=== PATIENT | female | born 1985 | race African-American/Black ===

== ENCOUNTER 2019-05-29 19:31 | Emergency (ER) | payer OTHER ==
--- NOTE | 2019-05-29 19:49 | PDOC ---
Rapid Medical Evaluation Chief Complaint: Pain Time Seen by Provider: 05/29/19 19:46 Medical Evaluation: Allergies Allergy/AdvReac Type Severity Reaction Status Date / Time No Known Allergies Allergy Verified 09/11/17 11:50 Vital Signs Temp Pulse Resp BP Pulse Ox 98 F 78 18 137/82 100 05/29/19 19:45 05/29/19 19:45 05/29/19 19:45 05/29/19 19:45 05/29/19 19:45 05/29/19 19:47 I have performed a brief in-person evaluation of this patient. The patient presents with a chief complaint of: h/o appendectomy present with RT flank pain since today with nausea. Denies vomiting or urinary complains. Denies fever, chills, diarrhea or constipation. LMP 05/13 Pertinent physical exam findings: A&O in NAD I have ordered the following: cbc,cmp,lipase, UA, UHCG, UCx The patient will proceed to the ED for further evaluation. Discharge Disposition - Diagnosis Right flank pain - Discharge Dispostion Condition at time of disposition: Stable - Referrals - Patient Instructions - Post Discharge Activity
[2019-05-29 20:07] LABS: HYALINE CASTS 28 /lpf (0-8); URINE APPEARANCE CLOUDY; URINE BILIRUBIN NEGATIVE (NEGATIVE); URINE COLOR YELLOW; URINE GLUCOSE (UA) NEGATIVE (NEGATIVE); URINE KETONE NEGATIVE (NEGATIVE); URINE LEUK ESTERASE 2+ (NEGATIVE); URINE NITRITE NEGATIVE (NEGATIVE); URINE PROTEIN 1+ (NEGATIVE); URINE RBC 33 /hpf (0-4); URINE UROBILINOGEN 0.2 mg/dL (0.2-1.0); URINE WBC 50 /hpf (0-5)
[2019-05-29 20:43] LABS: BASO % 0.5 % (0-2.0); EOS % 0.9 % (0-4.5); HEMATOCRIT 37.7 % (32.4-45.2); HEMOGLOBIN 12.1 GM/dL (10.7-15.3); LYMPH % 25.3 % (8-40); MCH 27.7 pg (25.7-33.7); MCHC 32.2 g/dl (32.0-36.0); MEAN CELL VOLUME 86.1 fl (80-96); MEAN PLT VOLUME 8.7 fl (7.5-11.1); MONO % 7.5 % (3.8-10.2); NEUT % 65.8 % (42.8-82.8); PLATELET COUNT 289 K/MM3 (134-434); RBC 4.38 M/mm3 (3.60-5.2); RDW 13.7 % (11.6-15.6); WHITE BLOOD COUNT 11.9 K/mm3 (4.0-10.0)
[2019-05-29] MEDS ORDERED: KETOROLAC TROMETHAMINE 30 MG/1 ML VIAL IVPUSH ONE (20:53)
[2019-05-29] MEDS ORDERED: SODIUM CHLORIDE 1,000 ML IV STA (20:53)
--- NOTE | 2019-05-29 20:53 | PDOC ---
History of Present Illness - General Chief Complaint: Pain Stated Complaint: PAIN Time Seen by Provider: 05/29/19 19:46 History Source: Patient Exam Limitations: No Limitations - History of Present Illness Initial Comments: 33 year old female with no PMH, x2, appendectomy presented to ED for RUQ pain since today. Pt reported her pain is constant, dull, non-radiating, no alleviating or aggravating factors. Pt admitted to nausea. Pt denied any association of pain with food. Pt denied diarrhea, constipation, dysuria, hematuria, fever. Past History - Past Medical History Allergies/Adverse Reactions: Allergies Allergy/AdvReac Type Severity Reaction Status Date / Time No Known Allergies Allergy Verified 05/29/19 21:57 Home Medications: Ambulatory Orders NK [No Known Home Medication] 09/11/17 COPD: No DVT: No Dementia: No - Surgical History Abdominal Surgery: Yes Appendectomy: Yes - Immunization History Immunization Up to Date: Yes - Psycho Social/Smoking Cessation Hx Smoking History: Never smoked Have you smoked in the past 12 months: No Hx Alcohol Use: No Drug/Substance Use Hx: No Substance Use Type: None *Physical Exam - Vital Signs Last Vital Signs Temp Pulse Resp BP Pulse Ox 98 F 78 18 137/82 100 05/29/19 19:45 05/29/19 19:45 05/29/19 19:45 05/29/19 19:45 05/29/19 19:45 - Physical Exam Comments: ROS General: denied fever, chills, generalized weakness. HEENT: denied sore throat, rhinorrhea, ear pain. Cardiovascular: denied chest pain, palpitations, syncope, diaphoresis. Respiratory: denied shortness of breath, cough, sputum production, hemoptysis. Gastrointestinal: admitted to abdominal pain, nausea. denied vomiting, diarrhea , constipation, blood in stool. Genitourinary: denied dysuria, increased urinary frequency, hematuria, urinary incontinence, flank pain. Back: denied back pain. Musculoskeletal: denied joint pain, muscle pain, joint swelling. Neurological: denied headache, dizziness, numbness, tingling, weakness. Integumentary: denied rash, laceration, abrasion. Hematologic/Lymphatic: denied bruising or bleeding. PE Constitutional: Well-nourished, Well-developed, appearing stated age. HEENT: head is normocephalic, atraumatic. EOMI. PERRLA. no posterior pharyngeal erythema.no tonsillar swelling or exudates bilaterally. uvula midline. no peritonsillar swelling, tenderness or abscess. no jaw tenderness or misalignment. Neck: supple. Full ROM. Cardiovascular: regular heart rhythm. no murmurs. no pericardial friction rub. Respiratory: clear to auscultation bilaterally. no crackles, rhonchi or wheezing. no stridor. Gastrointestinal: soft, flat. mild tenderness to palpation at lower border of RUQ/mid right abdomen. murphys negative. normal bowel sounds. no rebound, guarding, masses. CVA tenderness negative bilaterally. Extremities: peripheral pulses intact. no lower extremity edema. Neurological: CN 2-12 grossly intact. moves all four extremities. Psych: awake, alert, oriented x3. follows commands. answers questions appropriately. ED Treatment Course - LABORATORY CBC & Chemistry Diagram: 05/29/19 20:26 05/29/19 20:26 - ADDITIONAL ORDERS Additional order review: Laboratory Results 05/29/19 05/29/19 19:53 19:53 Urine Color Yellow Urine Appearance Cloudy Urine pH 6.0 Ur Specific Elmer 1.021 Urine Protein 1+ H Urine Glucose (UA) Negative Urine Ketones Negative Urine Blood 2+ H Urine Nitrite Negative Urine Bilirubin Negative Urine Urobilinogen 0.2 Ur Leukocyte Esterase 2+ H Urine WBC (Auto) 50 Urine RBC (Auto) 33 Urine Casts (Auto) 28 U Epithel Cells (Auto) 7.0 Urine Bacteria (Auto) 1406.0 Urine HCG, Qual Negative 05/29/19 20:26 RBC 4.38 MCV 86.1 MCHC 32.2 RDW 13.7 MPV 8.7 Neutrophils % 65.8 Lymphocytes % 25.3 Monocytes % 7.5 Eosinophils % 0.9 Basophils % 0.5 - RADIOLOGY Radiology Studies Ordered: Category Date Time Status ABDOMEN US -LIMITED [US] Stat Ultrasound 05/29/19 20:45 Ordered Medical Decision Making - Medical Decision Making 33 year old female with above PMH / PSH presented to ED for RUQ pain with nausea since today. Initial Vital Signs Temp Pulse Resp BP Pulse Ox 98 F 78 18 137/82 100 05/29/19 19:45 05/29/19 19:45 05/29/19 19:45 05/29/19 19:45 05/29/19 19:45 Afebrile. No tachycardia. No tachypnea. No hypotension. No hypoxia on room air. Urine testing negative. Labs ordered: CBC, CMP, Lipase, UA/UC Imaging ordered: RUQ US Medications ordered: normal saline bolus 1000 cc once, toradol 30 mg IV once 05/29/19 20:54 CBC WBC 11.9 K/mm3 (4.0-10.0) H 05/29/19 20:26 RBC 4.38 M/mm3 (3.60-5.2) 05/29/19 20:26 Hgb 12.1 GM/dL (10.7-15.3) 05/29/19 20:26 Hct 37.7 % (32.4-45.2) 05/29/19 20: MCV 86.1 fl (80-96) 05/29/19 20: MCH 27.7 pg (25.7-33.7) 05/29/19 20: MCHC 32.2 g/dl (32.0-36.0) 05/29/19 20:26 RDW 13.7 % (11.6-15.6) 05/29/19 20:26 Plt Count 289 K/MM3 (134-434) 05/29/19 20:26 MPV 8.7 fl (7.5-11.1) 05/29/19 20:26 Absolute Neuts (auto) 7.8 K/mm3 (1.5-8.0) 05/29/19 20:26 Neutrophils % 65.8 % (42.8-82.8) 05/29/19 20: Lymphocytes % 25.3 % (8-40) 05/29/19 20:26 Monocytes % 7.5 % (3.8-10.2) 05/29/19 20:26 Eosinophils % 0.9 % (0-4.5) 05/29/19 20:26 Basophils % 0.5 % (0-2.0) 05/29/19 20: Nucleated RBC % 0 % (0-0) 05/29/19 20:26 Leukocytosis without left shift. No anemia. Urine Test Results Urine Color Yellow 05/29/19 19:53 Urine Appearance Cloudy 05/29/19 19:53 Urine pH 6.0 (5.0-8.0) 05/29/19 19:53 Ur Specific Elmer 1.021 (1.010-1.035) 05/29/19 19:53 Urine Protein 1+ (NEGATIVE) H 05/29/19 19:53 Urine Glucose (UA) Negative (NEGATIVE) 05/29/19 19:53 Urine Ketones Negative (NEGATIVE) 05/29/19 19:53 Urine Blood 2+ (NEGATIVE) H 05/29/19 19:53 Urine Nitrite Negative (NEGATIVE) 05/29/19 19:53 Urine Bilirubin Negative (NEGATIVE) 05/29/19 19:53 Ur Leukocyte Esterase 2+ (NEGATIVE) H 05/29/19 19:53 WBC 50 Hemorrhagic cystitis vs pyelonephritis vs neprolithiasis. Imaging ordered: CT abdomen/pelvis spiral study noncontrast 05/29/19 21:24 CMP Sodium 137 mmol/L (136-145) 05/29/19 20:26 Potassium 3.9 mmol/L (3.5-5.1) 05/29/19 20:26 Chloride 105 mmol/L (98-107) 05/29/19 20:26 Carbon Dioxide 25 mmol/L (21-32) 05/29/19 20:26 Anion Gap 7 MMOL/L (8-16) L 05/29/19 20:26 BUN 8.7 mg/dL (7-18) 05/29/19 20:26 Creatinine 0.8 mg/dL (0.55-1.3) 05/29/19 20:26 Est GFR (CKD-EPI)AfAm 110.70 05/29/19 20:26 Est GFR (CKD-EPI)NonAf 95.52 05/29/19 20:26 Random Glucose 98 mg/dL (74-106) 05/29/19 20:26 Calcium 8.7 mg/dL (8.5-10.1) 05/29/19 20:26 Total Bilirubin 0.3 mg/dL (0.2-1) 05/29/19 20:26 AST 14 U/L (15-37) L 05/29/19 20:26 ALT 16 U/L (13-61) 05/29/19 20:26 Alkaline Phosphatase 59 U/L (45-117) 05/29/19 20:26 Total Protein 7.5 g/dl (6.4-8.2) 05/29/19 20:26 Albumin 4.0 g/dl (3.4-5.0) 05/29/19 20:26 Lipase 85 U/L (73-393) 05/29/19 20:26 No electrolyte abnormalities. No KIARRA. No transaminitis. Lipase wnl 05/29/19 21:33 US report: [facility] Phys: Jessica Sim RESIDENT : 1985 Age: 33 Sex: F [facility] Acct: [id number] Loc: [facility] [address] [place] [address] Exam Date: 05/29/19 Status: [place] [address] Unit Number: [id number] EXAM#: TYPE/EXAM: RESULT: [id number] US/ABDOMEN US -LIMITED Right upper quadrant abdomen ultrasound Clinical information: right upper quadrant pain, nausea No biliary calculus is seen. The gallbladder demonstrates no discrete abnormality. No pericholecystic fluid is noted. The common bile duct diameter appears unremarkable measuring 0.3 cm. The liver, right kidney and partially visualized pancreas demonstrate no sonographic pathology. No free intraperitoneal fluid is seen. Impression: Negative exam. No definite sonographic abnormality is identified. Reported By: Jason Chapin MD 05/29/19212605/29/19 23:18 Ct report: [facility] Phys: Kevin Sima RESIDENT : 1985 Age: 33 Sex: F [facility] Acct: [id number] Loc: [facility] [address] [place] [address] Exam Date: 05/29/19 Status: [place] [address] Unit Number: [id number] EXAM#: TYPE/EXAM: RESULT: [id number] CT/SPIRAL- RENAL-STONE CT Renal stone CT without contrast Clinical information: right upper quadrant pain, nausea; hematuria on UA Multiplanar imaging was performed. No intravenous or enteric contrast was administered. No definite urinary tract calculus or hydroureteronephrosis is noted. There is no gross urinary tract mass lesion on noncontrast imaging. No evidence of pneumoperitoneum, free intraperitoneal fluid or bowel obstruction. The liver, spleen, pancreas, gallbladder, adrenal glands and kidneys demonstrate no obvious noncontrast pathology. The aorta appears unremarkable in caliber. No gross lymphadenopathy is seen. Surgical clips are noted posterior to the cecum and ascending colon. The appendix is not definitely visualized possibly on a postsurgical basis. No indirect CT signs of acute appendicitis are seen. There is no CT evidence of acute diverticulitis or obvious acute colitis. No gross noncontrast small bowel or gastric abnormality is visualized. A 2 x 1.1 cm cystic focus is noted along the ventral border of the uterine fundus in a right paramedian position possibly representing an ovarian cyst. The visualized osseous structures demonstrate no gross acute pathology. Very small umbilical hernia containing fat only. Colonic fecal retention which is probably moderate. Impression: No CT evidence of urolithiasis or obstructive uropathy. Reported By: Jason Chapin MD 05/29/19 2317 05/29/19 23:31 Results explained to pt, pt given copy of report/labs. Pt instructed to take Bactrim OP and F/U with PCP promptly. Pt reported understanding and agreed with plan for care. Pt discharged. Medications ordered: Bactrim DS 1 tablet once Discharge - Discharge Information Problems reviewed: Yes Clinical Impression/Diagnosis: RUQ pain, UTI (urinary tract infection) Condition: Stable Disposition: HOME - Admission No - Follow up/Referral Referrals: Jaky Munguia [Primary Care Provider] - - Patient Discharge Instructions Patient Printed Discharge Instructions: DI for Urinary Tract Infection (UTI) Additional Instructions: Follow up with your primary care doctor within 3 days and bring all paperwork given to you today to your appointment. Your care is not complete until you follow up. Return to the Emergency Department for increasing pain despite Ibuprofen use, fever, vomiting, chest pain, shortness of breath or any other new, worsening or concerning symptoms. Take all prescriptions as indicated on labels. - Post Discharge Activity
[2019-05-29] MEDS ORDERED: KETOROLAC TROMETHAMINE 30 MG/1 ML VIAL ONE (21:05)
--- NOTE | 2019-05-29 21:07 | PDOC ---
Attending Attestation - Resident Resident Name: Jessica Sim - ED Attending Attestation I have performed the following: I have examined & evaluated the patient, The case was reviewed & discussed with the resident, I agree w/resident's findings & plan, Exceptions are as noted - HPI HPI: 05/29/19 21:04 3-year-old female presents with 1 day of right upper quadrant persistent dull pain. Associated with nausea but there is no fever chills vomiting or diarrhea Past surgical history significant for x2 and appendectomy - Physicial Exam PE: 05/29/19 21:05 wnwd 33 yo female p/w contrast dull RUQ pain head ncat neck supple lungs cta b/l cvs [id number] abd RUQ,RLQ tenderness extremities no edema skin warm and dry no appreciable tenderness in hr flank neuro axox3,ambulatory 05/29/19 21:19 05/29/19 21:21 - Medical Decision Making 05/29/19 21:22 Diff diagnosis: kidney stones,cholecystitis,hepatitis 05/29/19 22:39 Patient had a limited abdominal ultrasound that showed no significant gallbladder abnormalities, no inflammation, no sludge, no gallstones UA shows a urinary tract infection 50,000 WBCs, 2+ leuks CBC shows 11,900 WBCs Chemistries are unremarkable Negative test 05/29/19 23:[address] did not show any obstructing stones or hydronephrosis UA was positive for UTI and pt started on bactrim and discharged 05/30/19 01:43
[2019-05-29 21:17] LABS: BILIRUBIN,TOTAL 0.3 mg/dL (0.2-1); BLOOD UREA NITROGEN 8.7 mg/dL (7-18); CALCIUM 8.7 mg/dL (8.5-10.1); CREATININE 0.8 mg/dL (0.55-1.3); POTASSIUM 3.9 mmol/L (3.5-5.1); TOT PROT 7.5 g/dl (6.4-8.2)
[2019-05-29] MEDS ORDERED: SULFAMETHOXAZOLE/TRIMETHOPRIM 800MG/160MG D.S. TABLET PO ONE (23:31)
[2019-05-29] MEDS ORDERED: SULFAMETHOXAZOLE/TRIMETHOPRIM 800MG/160MG D.S. TABLET ONE (23:35)
[2019-05-29 23:52] VITALS: BP 97/63; PULSE 68; TEMP 98.3
== END 2019-05-29 23:51 | disposition home or self-care (01) ==
LOC: JER 19:31
PROC: 3E0333Z Introduction of Anti-inflammatory into Peripheral Vein, Percutaneous Approach (ICD-10-PCS; principal; 2019-05-29)
DX: N39.0 Urinary tract infection, site not specified (principal); D72.829 Elevated white blood cell count, unspecified
CPT/HCPCS: 36415; 74176-TC; 76705-TC; 80053; 81003; 83690; 84703; 85025; 87086; 87186; 96374; 99284-25; J7030

== ENCOUNTER 2019-06-21 20:18 | Emergency (ER) | payer OTHER ==
[2019-06-21 20:24] VITALS: BP 117/68; TEMP 98.7
--- NOTE | 2019-06-21 20:48 | PDOC ---
History of Present Illness - General Chief Complaint: Cold Symptoms Stated Complaint: HEADACHE/COUGHING/NAUSEA Time Seen by Provider: 06/21/19 20:31 - History of Present Illness Initial Comments: 06/21/19 20:48 CHIEF COMPLAINT: multiple complaints HISTORY OF PRESENT ILLNESS: 33 yo F with no significant PMH (s/p appendectomy) presents to ED with headache, body aches, right lower abdominal pain since this afternoon. Patient reports chills but is unsure if she had had a fever. Patient also reports coughing for the past 3 days but denies sore throat, runny nose. Patient believes the source of her RLQ pain is a urinary tract infection as she has had similar symptoms before. Patient took Nyquil earlier today with minimal relief., LMP 05/18. No recent travel or sick contacts. PAST MEDICAL HISTORY: Denies past medical history FAMILY HISTORY: Denies SOCIAL HISTORY: Denies tobacco, alcohol, illicit drug use. SURGICAL HISTORY: appendectomy ALLERGIES: No known drug allergies REVIEW OF SYSTEMS General/Constitutional: Chills, body aches. Denies weakness, weight change. HEENT: Denies change in vision. Denies ear pain or discharge. Denies sore throat. Cardiovascular: Denies chest pain or shortness of breath. Respiratory: Denies cough, wheezing, or hemoptysis. Gastrointestinal: R lower abdominal pain. Denies nausea, vomiting, diarrhea or constipation. Denies rectal bleeding. Genitourinary: Denies dysuria, frequency, or change in urination. Musculoskeletal: Denies joint or muscle swelling or pain. Denies neck or back pain. Skin and breasts: Denies rash or easy bruising. Neurologic: Denies headache, vertigo, loss of consciousness, or loss of sensation. Psychiatric: Denies depression or anxiety. PHYSICAL EXAM General Appearance: Well-appearing, appropriately dressed. No apparent distress , no intoxication. HEENT: EOMI, PERRLA, normal ENT inspection, normal voice, TMs normal, pharynx normal. No conjunctival pallor. No photophobia, scleral icterus. Neck: Supple. Trachea midline. No tenderness, rigidity, carotid bruit, stridor , lymphadenopathy, or thyromegaly. Respiratory/Chest: Lungs CTAB. No shortness of breath, chest tenderness, respiratory distress, accessory muscle use. No crackles, rales, rhonchi, stridor , wheezing, dullness Cardiovascular: RRR. S1, S2. No JVD, murmur, bradycardia, tachycardia. Vascular Pulses: Dorsalis-Pedis (R): 2+, Dorsalis-Pedis (L): 2+ Gastrointestinal/Abdominal: Normal bowel sounds. Abdomen soft, non-distended. No tenderness or rebound tenderness. No organomegaly, pulsatile mass, guarding , hernia, hepatomegaly, splenomegaly. Lymphatic: No adenopathy, tenderness. Musculoskeletal/Extremities: Normal inspection. FROM of all extremities, normal capillary refill. Pelvis Stable. No CVA tenderness. No tenderness to extremities, pedal edema, swelling, erythema or deformity. Integumentary: Appropriate color, dry, warm. 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 Fully oriented, alert. Appropriate mood/affect. Motor strength 5/5. No appreciable EOM palsy, facial droop or sensory deficit. Past History - Past Medical History Allergies/Adverse Reactions: Allergies Allergy/AdvReac Type Severity Reaction Status Date / Time No Known Allergies Allergy Verified 05/29/19 21:57 Home Medications: Ambulatory Orders Sulfamethoxazole/Trimethoprim [Bactrim Ds -] 1 tab PO BID #19 tablet 05/29/19 Nitrofurantoin Monohyd/M-Cryst [Macrobid -] 100 mg PO BID #14 capsule 06/21/19 COPD: No DVT: No Dementia: No - Surgical History Abdominal Surgery: Yes Appendectomy: Yes - Immunization History Immunization Up to Date: Yes - Psycho Social/Smoking Cessation Hx Smoking History: Never smoked Have you smoked in the past 12 months: No Hx Alcohol Use: No Drug/Substance Use Hx: No Substance Use Type: None *Physical Exam - Vital Signs Last Vital Signs Temp Pulse Resp BP Pulse Ox 98.7 F 125 H 20 117/68 97 06/21/19 20:20 06/21/19 20:20 06/21/19 20:20 06/21/19 20:20 06/21/19 20:20 Medical Decision Making - Medical Decision Making 06/21/19 21:02 33 yo F with no significant PMH presents to ED with headache, body aches, right lower abdominal pain since this afternoon. -urine -flu swab 06/21/19 22:27 UA positive for UTI, previous ucx shows sensitivity to macrobid. Rx sent. Advised patient to take medication as prescribed and follow up with PCP in one week. Advised patient of signs and symptoms for return to ED. Patient verbalized understanding and agrees to plan. Discharge - Discharge Information Problems reviewed: Yes Clinical Impression/Diagnosis: UTI (urinary tract infection) Qualifiers: Urinary tract infection type: site unspecified Hematuria presence: without hematuria Qualified Code(s): N39.0 - Urinary tract infection, site not specified Condition: Stable Disposition: HOME - Admission No - Additional Discharge Information Prescriptions: Nitrofurantoin Monohyd/M-Cryst [Macrobid -] 100 mg PO BID #14 capsule - Follow up/Referral - Patient Discharge Instructions Patient Printed Discharge Instructions: DI for Urinary Tract Infection (UTI) Additional Instructions: Please take medications as prescribed. Follow up with your primary care doctor in one week for further monitoring of your symptoms. If you develop fever uncontrolled by Motrin or Tylenol, persistent vomiting or diarrhea, worsening abdominal pain, or any new or worsening symptoms, please return to the ER. - Post Discharge Activity Work/Back to School Note: Back to Work
--- NOTE | 2019-06-21 20:54 | PDOC ---
*Physical Exam - Vital Signs Last Vital Signs Temp Pulse Resp BP Pulse Ox 98.7 F 125 H 20 117/68 97 06/21/19 20:20 06/21/19 20:20 06/21/19 20:20 06/21/19 20:20 06/21/19 20:20 - Physical Exam Comments: 06/21/19 20:53 The patient was examined by [RODGER Cordova] under my direct supervision. I personally evaluated the patient. I concur with the above findings and the plan of care.
[2019-06-21 21:28] LABS: EPI CELLS 5.6 /HPF (0-5/HPF); HYALINE CASTS 53 /lpf (0-8); PH,URINE 5.5 (5.0-8.0); URINE APPEARANCE CLOUDY; URINE BACTERIA 113.2 /hpf (NEGATIVE); URINE BILIRUBIN NEGATIVE (NEGATIVE); URINE COLOR YELLOW; URINE GLUCOSE (UA) NEGATIVE (NEGATIVE); URINE KETONE TRACE (NEGATIVE); URINE LEUK ESTERASE 2+ (NEGATIVE); URINE NITRITE NEGATIVE (NEGATIVE); URINE PROTEIN NEGATIVE (NEGATIVE); URINE RBC 1 /hpf (0-4); URINE UROBILINOGEN 0.2 mg/dL (0.2-1.0); URINE WBC 57 /hpf (0-5)
[2019-06-21] MEDS ORDERED: ACETAMINOPHEN 500 MG TABLET (FP) PO ONE (22:17)
[2019-06-21] MEDS ORDERED: ACETAMINOPHEN 325 MG TABLET (FP) ONE (22:22)
[2019-06-21] MEDS ORDERED: NITROFURANTOIN MACROCRYSTAL 50 MG CAPSULE (FP) ONE (22:23)
[2019-06-21] MEDS ORDERED: NITROFURANTOIN MACROCRYSTAL 50 MG CAPSULE (FP) PO SCH (22:30)
[2019-06-21 22:33] VITALS: PULSE 104
== END 2019-06-21 22:34 | disposition home or self-care (01) ==
LOC: JER 20:18
DX: N39.0 Urinary tract infection, site not specified (principal)
CPT/HCPCS: 81003; 84703; 87804; 99282-25

== ENCOUNTER 2019-09-05 21:41 | Inpatient (IN) | payer OTHER ==
--- NOTE | 2019-09-05 21:48 | PDOC ---
Rapid Medical Evaluation Chief Complaint: Urinary Problem Time Seen by Provider: 09/05/19 21:44 Medical Evaluation: Allergies Allergy/AdvReac Type Severity Reaction Status Date / Time No Known Allergies Allergy Verified 05/29/19 21:57 09/05/19 21:45 I have performed a brief in-person evaluation of this patient. The patient presents with a chief complaint of: dysuria, urinary frequency x 1 week. seen at [facility] last night and being treated with cipro and pyridium . report having body itching after starting to take meds yesterday so she stopped taking meds. Denies rash, SOB. pt did not take anything for itching Pertinent physical exam findings: A&O in NAD I have ordered the following: UA, Uhcg, Ucx The patient will proceed to the ED for further evaluation. Discharge Disposition - Diagnosis UTI (urinary tract infection) - Discharge Dispostion Condition at time of disposition: Stable - Referrals - Patient Instructions - Post Discharge Activity
--- NOTE | 2019-09-05 22:49 | PDOC ---
Attending Attestation - Resident Resident Name: [email or web address] - ED Attending Attestation I have performed the following: I have examined & evaluated the patient, The case was reviewed & discussed with the resident, I agree w/resident's findings & plan - HPI HPI: 09/06/19 01:27 see resident hpi - Physicial Exam PE: 09/06/19 01:28 see resident exam - Medical Decision Making 09/06/19 01:28 33-year-old female currently on Cipro for diagnosed UTI complaining of right flank pain nausea and body aches Labs suggest urinary tract infection A right upper quadrant ultrasound was ordered due to elevated liver function tests/lipase which showed no acute abnormality We will admit to medical service for antibiotics and further evaluation
[2019-09-05] MEDS ORDERED: ACETAMINOPHEN 1000 MG/100 ML VIAL (NON FORMULARY) IVPB ONE (22:52)
[2019-09-05] MEDS ORDERED: ONDANSETRON 4 MG/2 ML VIAL IVPUSH ONE (22:52)
[2019-09-05] MEDS ORDERED: SODIUM CHLORIDE 1,000 ML IV STA (22:52)
[2019-09-05] MEDS ORDERED: ACETAMINOPHEN INJECTION 100 ML IVPB ONE (23:26)
[2019-09-05] MEDS ORDERED: ONDANSETRON 4 MG/2 ML VIAL ONE (23:26)
[2019-09-05 23:37] LABS: WHITE BLOOD COUNT 15.7 K/mm3 (4.0-10.0)
[2019-09-05 23:38] LABS: BASO % 0.5 % (0-2.0); EOS % 1.4 % (0-4.5); HEMATOCRIT 40.2 % (32.4-45.2); HEMOGLOBIN 12.8 GM/dL (10.7-15.3); LYMPH % 8.5 % (8-40); MCH 27.1 pg (25.7-33.7); MCHC 31.9 g/dl (32.0-36.0); MEAN PLT VOLUME 9.2 fl (7.5-11.1); MONO % 6.5 % (3.8-10.2); NEUT % 83.1 % (42.8-82.8); PLATELET COUNT 271 K/MM3 (134-434); RBC 4.74 M/mm3 (3.60-5.2); RDW 14.4 % (11.6-15.6)
[2019-09-05 23:58] LABS: EPI CELLS 9.7 /HPF (0-5/HPF); HYALINE CASTS 24 /lpf (0-8); PH,URINE 6.5 (5.0-8.0); URINE APPEARANCE CLOUDY; URINE BACTERIA 252.1 /hpf (NEGATIVE); URINE BILIRUBIN 3+ (NEGATIVE); URINE COLOR DK YELLOW; URINE GLUCOSE (UA) NEGATIVE (NEGATIVE); URINE KETONE 3+ (NEGATIVE); URINE LEUK ESTERASE 2+ (NEGATIVE); URINE NITRITE POSITIVE (NEGATIVE); URINE PROTEIN TRACE (NEGATIVE); URINE WBC 34 /hpf (0-5)
[2019-09-06 00:12] LABS: ALBUMIN 3.8 g/dl (3.4-5.0); BILIRUBIN,TOTAL 3.5 mg/dL (0.2-1); CREATININE 0.8 mg/dL (0.55-1.3); POTASSIUM 3.7 mmol/L (3.5-5.1); TOT PROT 7.7 g/dl (6.4-8.2)
--- NOTE | 2019-09-06 00:26 | PDOC ---
History of Present Illness - General Chief Complaint: Urinary Problem Stated Complaint: PAIN Time Seen by Provider: 09/05/19 21:44 History Source: Patient Exam Limitations: No Limitations - History of Present Illness Initial Comments: 09/05/19 23:53 Patient is a 33F with no significant PMH here today complaining of RUQ pain. Patient was seen at [facility] two days ago for complaining of dysuria and urinary incontinence. She was diagnosed with a uti and discharged with ciprofloxacin. Patient reports the pain started today, prompting her to come to our ED for further evaluation. Denies vaginal pain, vaginal discharge. LMP last week. Denies fevers, chills. Endorses nausea and vomiting. Denies chest pain and shortness of breath. Past History - Past Medical History Allergies/Adverse Reactions: Allergies Allergy/AdvReac Type Severity Reaction Status Date / Time No Known Allergies Allergy Verified 09/05/19 21:48 Home Medications: Ambulatory Orders Sulfamethoxazole/Trimethoprim [Bactrim Ds -] 1 tab PO BID #19 tablet 05/29/19 Nitrofurantoin Monohyd/M-Cryst [Macrobid -] 100 mg PO BID #14 capsule 06/21/19 COPD: No DVT: No Dementia: No - Surgical History Abdominal Surgery: Yes Appendectomy: Yes - Immunization History Immunization Up to Date: Yes - Psycho Social/Smoking Cessation Hx Smoking History: Never smoked Have you smoked in the past 12 months: No Hx Alcohol Use: No Drug/Substance Use Hx: No Substance Use Type: None Review of Systems - Review of Systems Able to Perform ROS?: Yes Comments:: 09/06/19 00:26 GENERAL/CONSTITUTIONAL: No fever or chills. No weakness. HEAD, EYES, EARS, NOSE AND THROAT: No change in vision. No sore throat. CARDIOVASCULAR: No chest pain or shortness of breath RESPIRATORY: No cough, wheezing, or hemoptysis. GASTROINTESTINAL: +nausea,+vomiting, no diarrhea or constipation. GENITOURINARY:+ dysuria, +frequency, no change in urination. MUSCULOSKELETAL: No joint or muscle swelling or pain. No neck or back pain. SKIN: No rash NEUROLOGIC: No headache, vertigo, loss of consciousness, or change in strength/ sensation. ENDOCRINE: No increased thirst. No abnormal weight change HEMATOLOGIC/LYMPHATIC: No anemia, easy bleeding, or history of blood clots. ALLERGIC/IMMUNOLOGIC: No hives or skin allergy. *Physical Exam - Vital Signs Last Vital Signs Temp Pulse Resp BP Pulse Ox 97.9 F 99 H 18 134/68 98 09/05/19 21:44 09/05/19 21:44 09/05/19 21:44 09/05/19 21:44 09/05/19 21:44 - Physical Exam 09/06/19 00:28 GENERAL: Awake, alert, and fully oriented, in no acute distress HEAD: No signs of trauma, normocephalic, atraumatic EYES: PERRLA, EOMI, sclera anicteric, conjunctiva clear ENT: Auricles normal inspection, hearing grossly normal, nares patent, oropharynx clear without exudates. Moist mucosa NECK: Normal ROM, supple, no lymphadenopathy, JVD, or masses LUNGS: No distress, speaks full sentences, clear to auscultation bilaterally HEART: Regular rate and rhythm, normal S1 and S2, no murmurs, rubs or gallops, peripheral pulses normal and equal bilaterally. ABDOMEN: Soft, +RUQ tenderness, no suprapubic tenderness, no cva tenderness. EXTREMITIES: Normal inspection, Normal range of motion, no edema. No clubbing or cyanosis. NEUROLOGICAL: Cranial nerves II through XII grossly intact. Normal speech, normal gait, no focal sensorimotor deficits SKIN: Warm, Dry, normal turgor, no rashes or lesions noted. ED Treatment Course - LABORATORY CBC & Chemistry Diagram: 09/05/19 23:20 09/05/19 23:20 - ADDITIONAL ORDERS Additional order review: 09/05/19 23:20 RBC 4.74 MCV 85.0 MCHC 31.9 L RDW 14.4 MPV 9.2 Neutrophils % 83.1 H D Lymphocytes % 8.5 D Monocytes % 6.5 Eosinophils % 1.4 Basophils % 0.5 - RADIOLOGY Radiology Studies Ordered: Category Date Time Status ABDOMEN US -LIMITED [US] Stat Ultrasound 09/05/19 22:53 Ordered - Medications Given in the ED: ED Medications Discontinued Medications Generic Name Dose Route Start Last Admin Trade Name Freq PRN Reason Stop Dose Admin Acetaminophen 1,000 mg 09/05/19 22:52 09/05/19 23:46 Ofirmev Injection - IVPB 09/05/19 22:53 1,000 mg ONCE ONE Administration Sodium Chloride 1,000 mls @ 1,000 mls/hr 09/05/19 22:52 09/05/19 23:45 Normal Saline - IV 09/05/19 23:51 1,000 mls/hr ASDIR STA Administration Ondansetron HCl 4 mg 09/05/19 22:52 09/05/19 23:46 Zofran Injection IVPUSH 09/05/19 22:53 4 mg ONCE ONE Administration Medical Decision Making - Medical Decision Making 09/06/19 00:28 Patient is 33F here today with dysuria, RUQ pain. Vitals normal and stable. DDx includes, but is not limited to: cholecystitis, pyelonephritis, pancreatitis. Will evaluate further with cbc, cmp, lipase, ua/uc, upreg, ultrasound. Will treat with tylenol, zofran and fluids. 09/06/19 00:44 Laboratory Tests 09/05/19 09/05/19 09/05/19 23:20 23:20 23:20 WBC 15.7 H Hgb 12.8 Plt Count 271 Total Bilirubin 3.5 H AST 180 H ALT 501 H Lipase 603 H Urine Ketones Urine Nitrite Urine Bilirubin Ur Leukocyte Esterase Urine WBC (Auto) 09/05/19 23:40 WBC Hgb Plt Count Total Bilirubin AST ALT Lipase Urine Ketones 3+ H Urine Nitrite Positive H Urine Bilirubin 3+ H Ur Leukocyte Esterase 2+ H Urine WBC (Auto) 34 CBC elevated. Bili 3.5, AST/ALT elevated. Lipase 603. UA+ for UTI and ketones, suggesting decreased PO intake. Pending formal read of US. Wet read shows normal appearing gallbladder with normal CBD. Given abnormal liver values, failed outpatient treatment, and vomiting, will admit patient for pyelonephritis. Given ceftriaxone, urine culture sent. 09/06/19 01:05 US confirms wet read. No acute abnormalities. 09/06/19 01:30 D/w Dr Andrew. Accepted to Dr Foley. Discharge - Discharge Information Problems reviewed: Yes Clinical Impression/Diagnosis: UTI (urinary tract infection), Pyelonephritis Condition: Stable - Admission Yes - Follow up/Referral Referrals: Jaky Munguia [Primary Care Provider] - - Patient Discharge Instructions - Post Discharge Activity
[2019-09-06] MEDS ORDERED: CEFTRIAXONE 1,000 MG in DEXTROSE 5%-WATER - 50 ML IVPB ONE (00:49)
[2019-09-06] MEDS ORDERED: CEFTRIAXONE 1 GM/50 ML BAG ONE (01:11)
--- NOTE | 2019-09-06 02:15 | HP ---
CHIEF COMPLAINT: Right sided flank pain with dysuria since 1 day PCP: Jaky Smith HISTORY OF PRESENT ILLNESS: This is a 33 year old female with no significant PMH. She presented to the ER with complaints of right sided flank pain with dysuria since yesterday. The pain was sudden in onset, 10/10 in intensity, sharp in quality, constant in nature, non-radiating, alleviated by IV tylenol (received in the ER). She endorses associated anorexia, nausea, and vomiting. She denies any fevers, chills, SOB, chest pain, abdominal pain, diarrhea, hematuria, polyuria, or dysuria. She had 3-4 episodes of NBNB vomiting the day of presentation, yellow/ green in color. She went to the ER at [facility] the same day, and was discharged on Ciprofloxacin and Pyridium. She was started on both medications there without any adverse reactions. However, later that day she developed diffuse itching soon after taking both medications. This prompted her to visit the [facility] ER. She visited the [facility] ER in May and then again in June, both times with complaints of UTIs, and was discharged on Bactrim in May and on Macrobid BID for 7 days in June. Her LMP ended on the of this month, and she has not noticed any increased flow, clots, or dysmenorrhea. She is currently sexually active with 1 male partner, does not use any contraceptives, and was last tested for STDs last year (results were negative). ER course was notable for: (1) WBC 15.7 (Neutrophils 83.1%), UA: ketones 3+, bili 3+, blood 1+, nitrite +, LE 2+ (2) TBili 3.5, AST 180, ALT 501, ALP 169, Lipase 603 (3) US Abdomen: Enlarged liver (18.5cm), no intrahepatic biliary dilation, masses, stones, or sludge. GB wall normal in thickness. Splee, pancreas are normal. Kidneys normal in size without hydronephrosis, nephrolithiasis, or masses Recent Travel: denies PAST MEDICAL HISTORY: As listed in HPI PAST SURGICAL HISTORY: Appendectomy Social History: Smoking: denies Alcohol: socially Drugs: denies Allergies No Known Allergies Allergy (Verified 09/05/19 21:48) HOME MEDICATIONS: None REVIEW OF SYSTEMS CONSTITUTIONAL: Generalized Itching Absent: fever, chills, diaphoresis, generalized weakness, malaise, loss of appetite, weight change HEENT: Absent: rhinorrhea, nasal congestion, throat pain, throat swelling, difficulty swallowing, mouth swelling, ear pain, eye pain, visual changes CARDIOVASCULAR: Absent: chest pain, syncope, palpitations, irregular heart rate, lightheadedness , peripheral edema RESPIRATORY: Absent: cough, shortness of breath, dyspnea with exertion, orthopnea, wheezing, stridor, hemoptysis GASTROINTESTINAL: Absent: abdominal pain, abdominal distension, nausea, vomiting, diarrhea, constipation, melena, hematochezia GENITOURINARY: dysuria, flank pain Absent: dysuria, frequency, urgency, hesitancy, hematuria, flank pain, genital pain MUSCULOSKELETAL: Absent: myalgia, arthralgia, joint swelling, back pain, neck pain SKIN: Generalized Itching Absent: rash, itching, pallor HEMATOLOGIC/IMMUNOLOGIC: Absent: easy bleeding, easy bruising, lymphadenopathy, frequent infections ENDOCRINE: Absent: unexplained weight gain, unexplained weight loss, heat intolerance, cold intolerance NEUROLOGIC: Absent: headache, focal weakness or paresthesias, dizziness, unsteady gait, seizure, mental status changes, bladder or bowel incontinence PSYCHIATRIC: Absent: anxiety, depression, suicidal or homicidal ideation, hallucinations. PHYSICAL EXAMINATION Vital Signs - 24 hr 09/05/19 21:44 Temperature 97.9 F Pulse Rate 99 H Respiratory 18 Rate Blood Pressure 134/68 O2 Sat by Pulse 98 Oximetry (%) GENERAL: Awake, alert, and fully oriented, in no acute distress. HEAD: Normal with no signs of trauma. EYES: Pupils equal, round and reactive to light, extraocular movements intact, sclera anicteric, conjunctiva clear. No lid lag. EARS, NOSE, THROAT: Ears normal, nares patent, oropharynx clear without exudates. Moist mucous membranes. NECK: Normal range of motion, supple without lymphadenopathy, JVD, or masses. LUNGS: Breath sounds equal, clear to auscultation bilaterally. No wheezes, and no crackles. No accessory muscle use. HEART: Regular rate and rhythm, normal S1 and S2 without murmur, rub or gallop. ABDOMEN: Soft, nontender, not distended, normoactive bowel sounds, no guarding, no rebound, no masses. No hepatomegaly or splenomegaly. MUSCULOSKELETAL: Normal range of motion at all joints. No bony deformities or tenderness. Mild right sided CVA tenderness. UPPER EXTREMITIES: 2+ pulses, warm, well-perfused. No cyanosis. No clubbing. No peripheral edema. LOWER EXTREMITIES: 2+ pulses, warm, well-perfused. No calf tenderness. No peripheral edema. NEUROLOGICAL: Cranial nerves II-XII intact. Normal speech PSYCHIATRIC: Cooperative. Good eye contact. Appropriate mood and affect. SKIN: Warm, dry, normal turgor, no rashes or lesions noted, normal capillary refill. Laboratory Results - last 24 hr 09/05/19 09/05/19 09/05/19 23:20 23:20 23:20 WBC 15.7 H RBC 4.74 Hgb 12.8 Hct 40.2 MCV 85.0 MCH 27.1 MCHC 31.9 L RDW 14.4 Plt Count 271 MPV 9.2 Absolute Neuts (auto) 13.1 H Neutrophils % 83.1 H D Lymphocytes % 8.5 D Monocytes % 6.5 Eosinophils % 1.4 Basophils % 0.5 Nucleated RBC % 0 Sodium 137 Potassium 3.7 Chloride 103 Carbon Dioxide 25 Anion Gap 9 BUN 10.0 Creatinine 0.8 Est GFR (CKD-EPI)AfAm 110.70 Est GFR (CKD-EPI)NonAf 95.52 Random Glucose 89 Calcium 9.0 Total Bilirubin 3.5 H AST 180 H ALT 501 H Alkaline Phosphatase 169 H Total Protein 7.7 Albumin 3.8 Lipase 603 H Urine Color Urine Appearance Urine pH Ur Specific [place] Urine Protein Urine Glucose (UA) Urine Ketones Urine Blood Urine Nitrite Urine Bilirubin Urine Urobilinogen Ur Leukocyte Esterase Urine WBC (Auto) Urine RBC (Auto) Urine Casts (Auto) U Epithel Cells (Auto) Urine Bacteria (Auto) Urine HCG, Qual 09/05/19 09/05/19 23:40 23:40 WBC RBC Hgb Hct MCV MCH MCHC RDW Plt Count MPV Absolute Neuts (auto) Neutrophils % Lymphocytes % Monocytes % Eosinophils % Basophils % Nucleated RBC % Sodium Potassium Chloride Carbon Dioxide Anion Gap BUN Creatinine Est GFR (CKD-EPI)AfAm Est GFR (CKD-EPI)NonAf Random Glucose Calcium Total Bilirubin AST ALT Alkaline Phosphatase Total Protein Albumin Lipase Urine Color Dk yellow Urine Appearance Cloudy Urine pH 6.5 Ur Specific [place] 1.022 Urine Protein Trace Urine Glucose (UA) Negative Urine Ketones 3+ H Urine Blood 1+ H Urine Nitrite Positive H Urine Bilirubin 3+ H Urine Urobilinogen 1.0 Ur Leukocyte Esterase 2+ H Urine WBC (Auto) 34 Urine RBC (Auto) 5-8 Urine Casts (Auto) 24 U Epithel Cells (Auto) 9.7 Urine Bacteria (Auto) 252.1 Urine HCG, Qual Negative ASSESSMENT/PLAN: 33F with no significant PMH presented to the ER with R flank pain, dysuria, nausea, and vomiting since yesterday. She went to [facility] ER the same day, and was discharged on Ciprofloxacin and Pyridium, after which she briefly developed diffuse itching. #Pyelonephritis - WBC 15.7 (Neutrophils 83.1%) with symptoms of dysuria as well as LE 3+ on UA and CVS tenderness on examination suggestive of pyelonephritis - UA ketones 3+, bili 3+, blood 1+, nitrite +, LE 2+ - Urine etst was negative - UCx sent - US Abdomen: Enlarged liver (18.5cm), no intrahepatic biliary dilation, masses , stones, or sludge. GB wall normal in thickness. Splee, pancreas are normal. Kidneys normal in size without hydronephrosis, nephrolithiasis, or masses - Chlamydia, Gonorrhea, and RPR testing ordered - Will start on Ceftriaxone 1g - Patient counselled on UTI prevention methods, including proper hygiene technique #DILI (Drug induced liver injury) - Likely 2/2 Ciprofloxacin use, will stop - TBili 3.5, AST 180, ALT 501, ALP 169, Lipase 603 - Trend LFTs, will check in AM - Hepatitis Panel as well as HCV ordered - Tylenol, alcohol levels ordered - Benadryl PRN for pruritis - Glucocorticoids are of unproven benefit for most forms of drug hepatotoxicity , first step is cessation of offending agent. #FEN - Regular diet started #DVT - Lovenox 40mg SQ Visit type - Emergency Visit Emergency Visit: Yes ED Registration Date: 09/06/19 Care time: The patient presented to the Emergency Department on the above date and was hospitalized for further evaluation of their emergent condition. - New Patient This patient is new to me today: Yes Date on this admission: 09/07/19 - Critical Care Critical Care patient: No ATTENDING PHYSICIAN STATEMENT I saw and evaluated the patient. I reviewed the resident's note and discussed the case with the resident. I agree with the resident's findings and plan as documented. SUBJECTIVE: OBJECTIVE: ASSESSMENT AND PLAN:
[2019-09-06] MEDS ORDERED: diphenhydrAMINE HCL 25 MG CAPSULE (FP) PO ONE ×2 (03:11→03:26)
--- NOTE | 2019-09-06 04:45 | PN ---
Teaching Attending Note Name of Resident: Rafiq Tapia ATTENDING PHYSICIAN STATEMENT I saw and evaluated the patient. I reviewed the resident's note and discussed the case with the resident. I agree with the resident's findings and plan as documented. SUBJECTIVE: 33-year-old woman with a history of dysuria, urinary frequency x1 week. Patient was seen at [facility] 1 day ago and was discharged on Cipro and Pyridium. She developed itchiness after she took those medications and came to [facility] for evaluation. Patient is complaining of right flank pain, body aches. Markedly elevated LFTs in the emergency room blood work including total bilirubin of 3.5. Ultrasound of abdomen showed normal-appearing gallbladder with normal CBD. OBJECTIVE: Last Vital Signs Temp Pulse Resp BP Pulse Ox 97.9 F 99 H 18 134/68 96 09/05/19 21:44 09/05/19 21:44 09/05/19 21:44 09/05/19 21:44 09/06/19 04:11 GENERAL: Well developed, well nourished. Awake and alert. No acute distress. HEENT: Normocephalic, atraumatic. PERRLA, EOMI. No conjunctival pallor. Sclera are icteric. Moist mucous membranes. Oropharynx is clear. NECK: Supple. Full ROM. No JVD. Carotid pulses 2+ and symmetric, without bruits. No thyromegaly. No lymphadenopathy. CARDIOVASCULAR: Regular rate and rhythm. No murmurs, rubs, or gallops. Distal pulses are 2+ and symmetric. PULMONARY: No evidence of respiratory distress. Lungs clear to auscultation bilaterally. No wheezing, rales or rhonchi. ABDOMINAL: Soft. Right upper quadrant tenderness Non-distended. No rebound or guarding. No organomegaly. Normoactive bowel sounds. MUSCULOSKELETAL Normal range of motion at all joints. No bony deformities or tenderness. No CVA tenderness. EXTREMITIES: No cyanosis. No clubbing. No edema. No calf tenderness. SKIN: Warm and dry. Normal capillary refill. No rashes. No jaundice. PSYCHIATRIC: Cooperative. Good eye contact. Appropriate mood and affect. Imaging studies reviewed ASSESSMENT AND PLAN: 33-year-old woman with pyelonephritis, Positive leukocytosis, pyuria, positive leukocyte esterase on UA consistent with UTI. Suspect drug-induced liver injury secondary to ciprofloxacin. Markedly elevated liver function tests. Ultrasound of abdomen showed enlarged liver compatible with acute hepatitis. Admit to MedSurg Benadryl 25 mg p.o. as needed if nausea or vomiting IV fluid hydration Hepatitis panel Send viral hepatitis serologieshepatitis a, B, C EtOH, Tylenol level Avoid hepatotoxins Urine culture Ceftriaxone 1 g IV every 24 hours Heparin subcutaneous for DVT prophylaxis
[2019-09-06 05:14] VITALS: BMI 28.8
--- NOTE | 2019-09-06 07:43 | PN ---
Teaching Attending Note Name of Resident: Ambika Barfield ATTENDING PHYSICIAN STATEMENT I saw and evaluated the patient. I reviewed the resident's note and discussed the case with the resident. I agree with the resident's findings and plan as documented. SUBJECTIVE: OBJECTIVE: Vital Signs Temperature 97.9 F 09/05/19 21:44 Pulse Rate 80 09/06/19 04:43 Respiratory Rate 20 09/06/19 04:43 Blood Pressure 117/64 09/06/19 04:43 O2 Sat by Pulse Oximetry (%) 99 09/06/19 04:43 General: Young female, comfortable, not in distress HEENT; mucous membranes moist, no anemia, no jaundice, PERRLA, no nystagmus Neck: No JVD, supple, no bruit, thyroid palpably normal, normal carotid pulsations. Chest: Non-tender, clear to auscultation bilaterally CVS: S1-S2 regular no murmur/gallop/rub Abdomen: Nondistended, right upper quadrant tender, right flank pain, soft, bowel sounds present. Extremities: No edema., No cough tenderness, pulses present ENOLOGIST: AO X3 , no gross motor sensory deficit CBC,CMP WBC 15.7 K/mm3 (4.0-10.0) H 09/05/19 23:20 RBC 4.74 M/mm3 (3.60-5.2) 09/05/19 23:20 Hgb 12.8 GM/dL (10.7-15.3) 09/05/19 23:20 Hct 40.2 % (32.4-45.2) 09/05/19 23:20 MCV 85.0 fl (80-96) 09/05/19 23:20 MCH 27.1 pg (25.7-33.7) 09/05/19 23:20 MCHC 31.9 g/dl (32.0-36.0) L 09/05/19 23:20 RDW 14.4 % (11.6-15.6) 09/05/19 23:20 Plt Count 271 K/MM3 (134-434) 09/05/19 23:20 MPV 9.2 fl (7.5-11.1) 09/05/19 23:20 Absolute Neuts (auto) 13.1 K/mm3 (1.5-8.0) H 09/05/19 23:20 Neutrophils % 83.1 % (42.8-82.8) H D 09/05/19 23:20 Lymphocytes % 8.5 % (8-40) D 09/05/19 23:20 Monocytes % 6.5 % (3.8-10.2) 09/05/19 23:20 Eosinophils % 1.4 % (0-4.5) 09/05/19 23:20 Basophils % 0.5 % (0-2.0) 09/05/19 23:20 Nucleated RBC % 0 % (0-0) 09/05/19 23:20 Sodium 137 mmol/L (136-145) 09/05/19 23:20 Potassium 3.7 mmol/L (3.5-5.1) 09/05/19 23:20 Chloride 103 mmol/L (98-107) 09/05/19 23:20 Carbon Dioxide 25 mmol/L (21-32) 09/05/19 23:20 Anion Gap 9 MMOL/L (8-16) 09/05/19 23:20 BUN 10.0 mg/dL (7-18) 09/05/19 23:20 Creatinine 0.8 mg/dL (0.55-1.3) 09/05/19 23:20 Est GFR (CKD-EPI)AfAm 110.70 09/05/19 23:20 Est GFR (CKD-EPI)NonAf 95.52 09/05/19 23:20 Random Glucose 89 mg/dL (74-106) 09/05/19 23:20 Calcium 9.0 mg/dL (8.5-10.1) 09/05/19 23:20 Total Bilirubin 3.5 mg/dL (0.2-1) H 09/05/19 23:20 AST 180 U/L (15-37) H 09/05/19 23:20 ALT 501 U/L (13-61) H 09/05/19 23:20 Alkaline Phosphatase 169 U/L (45-117) H 09/05/19 23:20 Total Protein 7.7 g/dl (6.4-8.2) 09/05/19 23:20 Albumin 3.8 g/dl (3.4-5.0) 09/05/19 23:20 Lipase 603 U/L (73-393) H 09/05/19 23:20 Urine Test Results Urine Color Dk yellow 09/05/19 23:40 Urine Appearance Cloudy 09/05/19 23:40 Urine pH 6.5 (5.0-8.0) 09/05/19 23:40 Ur Specific [place] 1.022 (1.010-1.035) 09/05/19 23:40 Urine Protein Trace (NEGATIVE) 09/05/19 23:40 Urine Glucose (UA) Negative (NEGATIVE) 09/05/19 23:40 Urine Ketones 3+ (NEGATIVE) H 09/05/19 23:40 Urine Blood 1+ (NEGATIVE) H 09/05/19 23:40 Urine Nitrite Positive (NEGATIVE) H 09/05/19 23:40 Urine Bilirubin 3+ (NEGATIVE) H 09/05/19 23:40 Ur Leukocyte Esterase 2+ (NEGATIVE) H 09/05/19 23:40 Abdominal ultrasound: No acute changes ASSESSMENT AND PLAN:33-year-old no significant past medical history presented to ED with complaint of dysuria for the past 1 week 4 days he was treated at [facility] 2 days ago she was discharged on p.o. ciprofloxacin and Pyridium patient developed, Body ache on arrival to ED elevated T WBC, total bilirubin 3.5 mild elevation of lipase, elevated SGOT SGPT, abdominal shows normal CBD ultrasound. UA shows leukoesterase, nitrite WBC and bacteria Impression: 1. UTI: Follow-up urine culture blood culture continue ceftriaxone. 2. Transaminitis: Possibility of drug-induced or rule out chlamydia infection will follow-up urine GC, if positive add doxycycline. Problem List - Problems (1) Pyelonephritis Assessment/Plan: Continue IV ceftriaxone follow-up GC screening, please call [facility] to get previous work-up including urine culture Problems reviewed: Yes Code(s): N12 - TUBULO-INTERSTITIAL NEPHRITIS, NOT SPCF ACUTE OR CHRONIC (2) Transaminitis Assessment/Plan: Can be drug-induced follow-up serial LFTs, Problems reviewed: Yes Code(s): R74.0 - NONSPEC ELEV OF LEVELS OF TRANSAMNS & LACTIC ACID DEHYDRGNSE
[2019-09-06 08:23] LABS: BASO % 0.3 % (0-2.0); EOS % 1.2 % (0-4.5); HEMOGLOBIN 11.7 GM/dL (10.7-15.3); LYMPH % 11.4 % (8-40); MCH 27.9 pg (25.7-33.7); MCHC 32.5 g/dl (32.0-36.0); MEAN PLT VOLUME 9.4 fl (7.5-11.1); NEUT % 79.1 % (42.8-82.8); PLATELET COUNT 246 K/MM3 (134-434); RBC 4.19 M/mm3 (3.60-5.2); RDW 14.7 % (11.6-15.6); WHITE BLOOD COUNT 12.2 K/mm3 (4.0-10.0)
[2019-09-06 08:41] LABS: BILIRUBIN,DIRECT 3.5 mg/dL (0.0-0.2)
[2019-09-06] MEDS ORDERED: cefTRIAXone SODIUM 1 GM VIAL ONE (10:13)
[2019-09-06] MEDS ORDERED: DEXTROSE 5%-WATER - 50 ML IVPB ONE (10:13)
[2019-09-06] MEDS: ENOXAPARIN NA (PORCINE) 40 MG/0.4 ML DISP.SYRIN SQ SCH (10:32)
[2019-09-06] MEDS: CEFTRIAXONE 1 GM in DEXTROSE 5%-WATER - 50 ML IVPB SCH (10:36)
--- NOTE | 2019-09-06 12:26 | PN ---
Physical Exam: SUBJECTIVE: Patient seen and examined. Says she has right flank pain. Her dysuria has improved this AM. OBJECTIVE: Vital Signs Period Temp Pulse Resp BP Sys/Terry Pulse Ox Last 24 Hr 97.9 F 80-99 18-20 117-134/64-68 96-99 GENERAL: a/o x 3, in NAD HEAD: Normal with no signs of trauma. EYES: PERRL, conjunctiva clear. No ptosis. ENT: moist mucous membranes. NECK: supple. LUNGS: Breath sounds equal, clear to auscultation bilaterally HEART: RRR, no MGR ABDOMEN: Soft, nontender, nondistended, normoactive bowel sounds. R CVA TENDERNESS EXTREMITIES: 2+ pulses, warm, well-perfused, no edema. Laboratory Results - last 24 hr 09/05/19 09/05/19 09/05/19 23:20 23:20 23:20 WBC 15.7 H RBC 4.74 Hgb 12.8 Hct 40.2 MCV 85.0 MCH 27.1 MCHC 31.9 L RDW 14.4 Plt Count 271 MPV 9.2 Absolute Neuts (auto) 13.1 H Neutrophils % 83.1 H D Lymphocytes % 8.5 D Monocytes % 6.5 Eosinophils % 1.4 Basophils % 0.5 Nucleated RBC % 0 Sodium 137 Potassium 3.7 Chloride 103 Carbon Dioxide 25 Anion Gap 9 BUN 10.0 Creatinine 0.8 Est GFR (CKD-EPI)AfAm 110.70 Est GFR (CKD-EPI)NonAf 95.52 Random Glucose 89 Calcium 9.0 Total Bilirubin 3.5 H Direct Bilirubin AST 180 H ALT 501 H Alkaline Phosphatase 169 H Total Protein 7.7 Albumin 3.8 Lipase 603 H Urine Color Urine Appearance Urine pH Ur Specific [place] Urine Protein Urine Glucose (UA) Urine Ketones Urine Blood Urine Nitrite Urine Bilirubin Urine Urobilinogen Ur Leukocyte Esterase Urine WBC (Auto) Urine RBC (Auto) Urine Casts (Auto) U Epithel Cells (Auto) Urine Bacteria (Auto) Urine HCG, Qual Acetaminophen Alcohol, Quantitative RPR Titer 09/05/19 09/05/19 09/06/19 23:40 23:40 07:38 WBC 12.2 H RBC 4.19 Hgb 11.7 Hct 36.0 MCV 86.0 MCH 27.9 MCHC 32.5 RDW 14.7 Plt Count 246 MPV 9.4 Absolute Neuts (auto) 9.6 H Neutrophils % 79.1 Lymphocytes % 11.4 D Monocytes % 8.0 Eosinophils % 1.2 Basophils % 0.3 Nucleated RBC % 0 Sodium Potassium Chloride Carbon Dioxide Anion Gap BUN Creatinine Est GFR (CKD-EPI)AfAm Est GFR (CKD-EPI)NonAf Random Glucose Calcium Total Bilirubin Direct Bilirubin AST ALT Alkaline Phosphatase Total Protein Albumin Lipase Urine Color Dk yellow Urine Appearance Cloudy Urine pH 6.5 Ur Specific [place] 1.022 Urine Protein Trace Urine Glucose (UA) Negative Urine Ketones 3+ H Urine Blood 1+ H Urine Nitrite Positive H Urine Bilirubin 3+ H Urine Urobilinogen 1.0 Ur Leukocyte Esterase 2+ H Urine WBC (Auto) 34 Urine RBC (Auto) 5-8 Urine Casts (Auto) 24 U Epithel Cells (Auto) 9.7 Urine Bacteria (Auto) 252.1 Urine HCG, Qual Negative Acetaminophen Alcohol, Quantitative RPR Titer 09/06/19 09/06/19 09/06/19 07:38 07:38 07:38 WBC RBC Hgb Hct MCV MCH MCHC RDW Plt Count MPV Absolute Neuts (auto) Neutrophils % Lymphocytes % Monocytes % Eosinophils % Basophils % Nucleated RBC % Sodium Potassium Chloride Carbon Dioxide Anion Gap BUN Creatinine Est GFR (CKD-EPI)AfAm Est GFR (CKD-EPI)NonAf Random Glucose Calcium Total Bilirubin Direct Bilirubin 3.5 H AST ALT Alkaline Phosphatase Total Protein Albumin Lipase Urine Color Urine Appearance Urine pH Ur Specific [place] Urine Protein Urine Glucose (UA) Urine Ketones Urine Blood Urine Nitrite Urine Bilirubin Urine Urobilinogen Ur Leukocyte Esterase Urine WBC (Auto) Urine RBC (Auto) Urine Casts (Auto) U Epithel Cells (Auto) Urine Bacteria (Auto) Urine HCG, Qual Acetaminophen <2.0 Alcohol, Quantitative < 3 RPR Titer Nonreactive Active Medications Generic Name Dose Route Start Last Admin Trade Name Freq PRN Reason Stop Dose Admin Diphenhydramine HCl 25 mg 09/06/19 02:40 Benadryl - PO Q4H PRN ALLERGIES Enoxaparin Sodium 40 mg 09/06/19 10:00 09/06/19 10:32 Lovenox - SQ 40 mg DAILY KEITH Administration Ceftriaxone Sodium 1 gm/ 50 mls @ 100 mls/hr 09/06/19 10:00 09/06/19 10:36 Dextrose IVPB 100 mls/hr DAILY KEITH Administration Protocol ASSESSMENT/PLAN: 3 year old female with no significant PMHx, presenting to the ER with complaints of right sided flank pain and is being treated for pyelo. #Acute Pyelonephritis -IV abx day 1: cefriaxone. will continue -pending ucx, g/c -called [facility] today, per Physician, G/C culture in the ER negative and urine culture positive for coag + staph -patient still with R cva tenderness but dysuria has improved -monitor vs #Elevated LFTs -likely drug induced from cipro use -U/S unremarkable -follow up AM labs -hep panel #FEN - Regular diet started #DVT - Lovenox 40mg SQ Visit type - Emergency Visit Emergency Visit: Yes ED Registration Date: 09/06/19 Care time: The patient presented to the Emergency Department on the above date and was hospitalized for further evaluation of their emergent condition. - New Patient This patient is new to me today: Yes Date on this admission: 09/06/19 - Critical Care Critical Care patient: No ATTENDING PHYSICIAN STATEMENT I saw and evaluated the patient. I reviewed the resident's note and discussed the case with the resident. I agree with the resident's findings and plan as documented. SUBJECTIVE: OBJECTIVE: ASSESSMENT AND PLAN:
[2019-09-06 13:48] LABS: ALBUMIN 3.6 g/dl (3.4-5.0); ALK PHOS 165 U/L (45-117); ANION GAP 15 MMOL/L (8-16); BILIRUBIN,TOTAL 3.8 mg/dL (0.2-1); BLOOD UREA NITROGEN 6.2 mg/dL (7-18); CALCIUM 8.8 mg/dL (8.5-10.1); CHLORIDE 108 mmol/L (98-107); CO2 16 mmol/L (21-32); CREATININE 0.8 mg/dL (0.55-1.3); GLUCOSE,RANDOM 73 mg/dL (74-106); SGOT/AST 142 U/L (15-37); SGPT/ALT 434 U/L (13-61); SODIUM 139 mmol/L (136-145); TOT PROT 7.1 g/dl (6.4-8.2)
--- NOTE | 2019-09-06 15:35 | EKG ---
Test Reason : Blood Pressure : / mmHG Vent. Rate : 087 BPM Atrial Rate : 087 BPM P-R Int : 132 ms QRS Dur : 082 ms QT Int : 390 ms P-R-T Axes : 052 027 007 degrees QTc Int : 469 ms NORMAL SINUS RHYTHM POSSIBLE LEFT ATRIAL ENLARGEMENT BORDERLINE ECG NO PREVIOUS ECGS AVAILABLE Confirmed by MD Azeem, Laith ([id number]) on 09/06/2019 3:35:15 PM Referred By: Confirmed By:Laith Gann MD
[2019-09-07 00:45] LABS: GAMMA GLUTAMYL TRANSPEPTIDASE 698 U/L (5-85)
[2019-09-07] MEDS ORDERED: cefTRIAXone SODIUM 1 GM VIAL ONE (08:18)
[2019-09-07] MEDS ORDERED: DEXTROSE 5%-WATER - 50 ML IVPB ONE (08:19)
--- NOTE | 2019-09-07 08:56 | PN ---
Teaching Attending Note Name of Resident: Ambika Barfield ATTENDING PHYSICIAN STATEMENT I saw and evaluated the patient. I reviewed the resident's note and discussed the case with the resident. I agree with the resident's findings and plan as documented. SUBJECTIVE: Patient still with right upper quadrant OBJECTIVE: Vital Signs Temperature 98.3 F 09/07/19 05:48 Pulse Rate 74 09/07/19 05:48 Respiratory Rate 20 09/07/19 05:48 Blood Pressure 115/60 09/07/19 05:48 O2 Sat by Pulse Oximetry (%) 98 09/06/19 21:00 General: Young female, comfortable, not in distress HEENT; mucous membranes moist, no anemia, no jaundice, PERRLA, no nystagmus Neck: No JVD, supple, no bruit, thyroid palpably normal, normal carotid pulsations. Chest: Non-tender, clear to auscultation bilaterally CVS: S1-S2 regular no murmur/gallop/rub Abdomen: Nondistended, right upper quadrant tender, right flank pain, soft, bowel sounds present. 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 ciprofloxacin and Pyridium patient developed, Body ache on arrival to ED elevated T WBC, total bilirubin 3.5 mild elevation of lipase, elevated SGOT SGPT, abdominal shows normal CBD ultrasound. UA shows leukoesterase, nitrite WBC and bacteria, resident called to [place] ED UA was positive for staph epi no sensitivity was performed, patient labs shows elevated SGOT SGPT and TB Problem List - Problems (1) Pyelonephritis Assessment/Plan: Patient is improving with ceftriaxone, urine culture is negative, will switch to Ceftin twice daily Code(s): N12 - TUBULO-INTERSTITIAL NEPHRITIS, NOT SPCF ACUTE OR CHRONIC (2) Transaminitis Assessment/Plan: He still elevated to be 4.1 SGOT/SGPT 157/467 alkaline phosphate 189, lipase 516 we will follow-up GI recommendations. Code(s): R74.0 - NONSPEC ELEV OF LEVELS OF TRANSAMNS & LACTIC ACID DEHYDRGNSE
[2019-09-07 09:09] LABS: BASO % 0.3 % (0-2.0); EOS % 3.6 % (0-4.5); HEMOGLOBIN 12.2 GM/dL (10.7-15.3); LYMPH % 24.7 % (8-40); MCH 27.8 pg (25.7-33.7); MCHC 33.1 g/dl (32.0-36.0); MEAN CELL VOLUME 84.2 fl (80-96); MEAN PLT VOLUME 9.6 fl (7.5-11.1); MONO % 10.2 % (3.8-10.2); NEUT % 61.2 % (42.8-82.8); PLATELET COUNT 286 K/MM3 (134-434); RDW 14.7 % (11.6-15.6); WHITE BLOOD COUNT 7.3 K/mm3 (4.0-10.0)
[2019-09-07] MEDS: ENOXAPARIN NA (PORCINE) 40 MG/0.4 ML DISP.SYRIN SQ SCH (09:10)
[2019-09-07] MEDS: diphenhydrAMINE HCL 25 MG CAPSULE (FP) PO PRN ×2 (09:10→18:22)
[2019-09-07] MEDS: CEFTRIAXONE 1 GM in DEXTROSE 5%-WATER - 50 ML IVPB SCH (09:10)
[2019-09-07 10:06] LABS: ALBUMIN 3.6 g/dl (3.4-5.0); BILIRUBIN,TOTAL 4.1 mg/dL (0.2-1); BLOOD UREA NITROGEN 3.9 mg/dL (7-18); CALCIUM 9.4 mg/dL (8.5-10.1); CREATININE 0.7 mg/dL (0.55-1.3); POTASSIUM 3.8 mmol/L (3.5-5.1); TOT PROT 7.6 g/dl (6.4-8.2)
--- NOTE | 2019-09-07 13:51 | PN ---
Physical Exam: SUBJECTIVE: Patient seen and examined. Offers no complaints today. Says she is feeling better. OBJECTIVE: Vital Signs Period Temp Pulse Resp BP Sys/Terry Pulse Ox Last 24 Hr 97.9 F-98.3 F 74-93 18-20 108-129/48-69 98 GENERAL: a/o x 3, in NAD HEAD: Normal with no signs of trauma. EYES: PERRL, conjunctiva clear. No ptosis. ENT: moist mucous membranes. NECK: supple. LUNGS: Breath sounds equal, clear to auscultation bilaterally HEART: RRR, no MGR ABDOMEN: Soft, nontender, nondistended, normoactive bowel sounds. EXTREMITIES: 2+ pulses, warm, well-perfused, no edema. Laboratory Results - last 24 hr 09/06/19 09/07/19 09/07/19 07:38 08:16 08:16 WBC 7.3 RBC 4.40 Hgb 12.2 Hct 37.0 MCV 84.2 MCH 27.8 MCHC 33.1 RDW 14.7 Plt Count 286 MPV 9.6 Absolute Neuts (auto) 4.5 Neutrophils % 61.2 D Lymphocytes % 24.7 D Monocytes % 10.2 Eosinophils % 3.6 D Basophils % 0.3 Nucleated RBC % 0 Sodium 139 139 Potassium 4.0 3.8 Chloride 108 H 105 Carbon Dioxide 16 L 22 Anion Gap 15 12 BUN 6.2 L 3.9 L Creatinine 0.8 0.7 Est GFR (CKD-EPI)AfAm 110.70 130.10 Est GFR (CKD-EPI)NonAf 95.52 112.25 Random Glucose 73 L 94 Calcium 8.8 9.4 Total Bilirubin 3.8 H 4.1 H Direct Bilirubin 3.5 H GGT 698 H AST 142 H 157 H ALT 434 H 407 H Alkaline Phosphatase 165 H 189 H Total Protein 7.1 7.6 Albumin 3.6 3.6 Lipase 516 H Alcohol, Quantitative < 3 Active Medications Generic Name Dose Route Start Last Admin Trade Name Freq PRN Reason Stop Dose Admin Diphenhydramine HCl 25 mg 09/06/19 02:40 09/07/19 09:10 Benadryl - PO 25 mg Q4H PRN Administration ALLERGIES Enoxaparin Sodium 40 mg 09/06/19 10:00 09/07/19 09:10 Lovenox - SQ 40 mg DAILY KEITH Administration Ceftriaxone Sodium 1 gm/ 50 mls @ 100 mls/hr 09/06/19 10:00 09/07/19 09:10 Dextrose IVPB 100 mls/hr DAILY KEITH Administration Protocol ASSESSMENT/PLAN: 33 year old female with no significant PMHx, presenting to the ER with complaints of right sided flank pain and is being treated for pyelo. #Acute Pyelonephritis -IV abx day 2: cefriaxone. will continue -pending ucx, g/c. -called [facility] ER, per Physician, G/C culture in the ER negative and urine culture positive for coag + staph -symptoms improving -monitor vs #Elevated LFTs -discussed case with ER physician at [facility], June 27 AST/ALT: 213/400 then on July 08 they decreased to 23/50. Liver U/S at the time unremarkable. -elevated lipase also -U/S unremarkable -hep panel, JERROD, anti-smooth muscle ab -GI consult. #Elevated Lipase -am triglyceride level -GI consult #FEN - Regular diet started #DVT - Lovenox 40mg SQ Visit type - Emergency Visit Emergency Visit: Yes ED Registration Date: 09/06/19 Care time: The patient presented to the Emergency Department on the above date and was hospitalized for further evaluation of their emergent condition. - New Patient This patient is new to me today: Yes Date on this admission: 09/07/19 - Critical Care Critical Care patient: No ATTENDING PHYSICIAN STATEMENT I saw and evaluated the patient. I reviewed the resident's note and discussed the case with the resident. I agree with the resident's findings and plan as documented. SUBJECTIVE: OBJECTIVE: ASSESSMENT AND PLAN:
--- NOTE | 2019-09-07 18:32 | CON.GI ---
Consult Consult Specialty:: GI Referred by:: Hospitalist Service Reason for Consultation:: Abnormal LFTS - History of Present Illness Chief Complaint: weakness History of Present Illness: 33F admitted through [facility] ER for evaluation of malaise. Prior to this, she was seen at the [facility] ER 09/03/19 for right sided abdominopelvic pain. The pain started suddenly that wednesday night. She was diagnosed with a UTI and was given a dose of cipro and pyridium and was discharged with the same. Blood work was not drawn. She took 1 dose of them at home but stopped because she felt they were making her pruritic. She felt general weakness prompting her ER evaluation at [facility]. She was noted to have elevated bilirubin as well as ALP and transaminases. She states that her PMD works at the [employer] and that a year ago, her PMD was wondering why her liver "was working hard". She has not had follow-up regarding this. There is no family history of liver disease. She denies recent travel, tylenol use, use of OTC medications. She states that she drinks alcohol socially ( 2 cups of beer or liquor on some weekends and on some weekdays). She denies fevers/chills, unintentional weight loss. She denies jaundiced episodes in the past. Abdominal US was normal. Hepatitis serologies are pending. Lipase was drawn, however uncertain why as the patient denies ongoing abdominal pain since admission. - History Source History Provided By: Patient - Past Medical History Additional Medical History: Denies - Past Surgical History Past Surgical History: Yes: Appendectomy - Alcohol/Substance Use Hx Alcohol Use: Yes History of Substance Use: reports: Marijuana (in past) - Smoking History Smoking history: Never smoked Have you smoked in the past 12 months: No - Social History Usual Living Arrangement: Alone ADL: Independent Place of : [place] History of Recent Travel: No Home Medications - Allergies Allergies/Adverse Reactions: Allergies Allergy/AdvReac Type Severity Reaction Status Date / Time ciprofloxacin Allergy Verified 09/06/19 05:30 Family Medical History Other Family History: Mother: Alive: PPM. Father: Does not know his history. 5 brothers: Healthy. 1 son /1 daughter: Daughter with eczema, son with asthma Review of Systems - Review of Systems Constitutional: reports: Malaise. denies: Fever Cardiovascular: denies: Chest Pain Respiratory: denies: Cough Gastrointestinal: reports: Abdominal Pain (Resolved). denies: Nausea Physical Exam-GI Vital Signs: Vital Signs Temperature 97.9 F 09/07/19 14:27 Pulse Rate 84 09/07/19 14:27 Respiratory Rate 18 09/07/19 14:27 Blood Pressure 118/57 L 09/07/19 14:27 O2 Sat by Pulse Oximetry (%) 98 09/06/19 21:00 Constitutional: Yes: Calm Eyes: No: Sclera Icterus HENT: Yes: Other (Subungal icterus) Cardiovascular: Yes: Regular Rate and Rhythm. No: Murmur Respiratory: Yes: CTA Bilaterally Gastrointestinal Inspection: No: Distention ...Auscultate: Yes: Normoactive Bowel Sounds ...Palpate: No: Hepatomegaly, Soft, Splenomegaly, Tenderness ...Percussion: No: Tympanitic Edema: No (No LE edema) Neurological: Yes: Alert, Oriented Labs: CBC, BMP 09/07/19 08:16 09/07/19 08:16 Hepatic Panel Total Bilirubin 4.1 mg/dL (0.2-1) H 09/07/19 08:16 Direct Bilirubin 3.5 mg/dL (0.0-0.2) H 09/06/19 07:38 AST 157 U/L (15-37) H 09/07/19 08:16 ALT 407 U/L (13-61) H 09/07/19 08:16 Alkaline Phosphatase 189 U/L (45-117) H 09/07/19 08:16 Albumin 3.6 g/dl (3.4-5.0) 09/07/19 08:16 Problem List - Problems (1) Abnormal liver function tests Assessment/Plan: 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 She only received two doses of antbiotic in total from ER and at home making this a DILI unlikely. She also has no clinical evidence of pancreatitis Advise: Obtaining records from her PMD regarding to compare previous liver chemistries Hepatitis serologies pending Ordered MRCP. Discussed the possibility of ERCP if there is concern for biliary etiology such as CBD stone/stricture. Discussed potential risks of the procedure like but not limited to bleeding, perforation requiring surgery to repair, infection, sedation medication effects all of which could be potentially life threatening. She has agreed to the procedure if it was felt to be clinically necessary. If continued rise in bilirubin, INR, worsening mentation, all signs concerning for USP and no evidence of biliary pathology would transfer to a liver center for further evaluation. Code(s): R94.5 - ABNORMAL RESULTS OF LIVER FUNCTION STUDIES
[2019-09-08 08:34] LABS: BASO % 0.6 % (0-2.0); EOS % 3.2 % (0-4.5); HEMATOCRIT 37.1 % (32.4-45.2); HEMOGLOBIN 12.2 GM/dL (10.7-15.3); MCH 27.6 pg (25.7-33.7); MCHC 32.8 g/dl (32.0-36.0); MEAN PLT VOLUME 9.3 fl (7.5-11.1); MONO % 10.6 % (3.8-10.2); NEUT % 53.6 % (42.8-82.8); PLATELET COUNT 277 K/MM3 (134-434); RBC 4.42 M/mm3 (3.60-5.2); RDW 14.5 % (11.6-15.6); WHITE BLOOD COUNT 6.3 K/mm3 (4.0-10.0)
[2019-09-08] MEDS ORDERED: DEXTROSE 5%-WATER - 50 ML IVPB ONE (08:55)
[2019-09-08] MEDS ORDERED: cefTRIAXone SODIUM 1 GM VIAL ONE (08:55)
[2019-09-08 08:58] LABS: INR 1.03 (0.83-1.09); PROTHROMBIN TIME (PATIENT) 12.1 SEC (9.7-13.0)
[2019-09-08 09:04] LABS: ALBUMIN 3.5 g/dl (3.4-5.0); BILIRUBIN,TOTAL 2.5 mg/dL (0.2-1); BLOOD UREA NITROGEN 6.3 mg/dL (7-18); CALCIUM 9.3 mg/dL (8.5-10.1); CREATININE 0.8 mg/dL (0.55-1.3); POTASSIUM 3.7 mmol/L (3.5-5.1); TOT PROT 7.3 g/dl (6.4-8.2)
[2019-09-08] MEDS: ENOXAPARIN NA (PORCINE) 40 MG/0.4 ML DISP.SYRIN SQ SCH (09:11)
[2019-09-08] MEDS: CEFTRIAXONE 1 GM in DEXTROSE 5%-WATER - 50 ML IVPB SCH (09:11)
--- NOTE | 2019-09-08 14:17 | PN ---
Progress Note, Physician Chief Complaint: Patient remained asymptomatic denies any pain nausea vomiting. - Current Medication List Current Medications: Active Medications Diphenhydramine HCl (Benadryl -) 25 mg PO Q4H PRN PRN Reason: ALLERGIES Last Admin: 09/07/19 18:22 Dose: 25 mg Enoxaparin Sodium (Lovenox -) 40 mg SQ DAILY KEITH Last Admin: 09/08/19 09:11 Dose: 40 mg Ceftriaxone Sodium 1 gm/ (Dextrose) 50 mls @ 100 mls/hr IVPB DAILY KEITH; Protocol Last Admin: 09/08/19 09:11 Dose: 100 mls/hr - Objective Vital Signs: Vital Signs Temperature 97.8 F 09/08/19 07:23 Pulse Rate 67 09/08/19 07:23 Respiratory Rate 14 09/08/19 07:23 Blood Pressure 104/60 09/08/19 07:23 O2 Sat by Pulse Oximetry (%) 98 09/08/19 09:00 General: Young female, comfortable, not in distress HEENT; mucous membranes moist, no anemia, no jaundice, PERRLA, no nystagmus Neck: No JVD, supple, no bruit, thyroid palpably normal, normal carotid pulsations. Chest: Non-tender, clear to auscultation bilaterally CVS: S1-S2 regular no murmur/gallop/rub Abdomen: Nondistended, right upper quadrant tender, right flank pain, soft, bowel sounds present. 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 Labs: CBC, BMP 09/08/19 07:42 09/08/19 07:42 INR, PTT INR 1.03 (0.83-1.09) 09/08/19 07:42 CBCD WBC 6.3 K/mm3 (4.0-10.0) 09/08/19 07:42 RBC 4.42 M/mm3 (3.60-5.2) 09/08/19 07:42 Hgb 12.2 GM/dL (10.7-15.3) 09/08/19 07:42 Hct 37.1 % (32.4-45.2) 09/08/19 07:42 MCV 84.0 fl (80-96) 09/08/19 07:42 MCHC 32.8 g/dl (32.0-36.0) 09/08/19 07:42 RDW 14.5 % (11.6-15.6) 09/08/19 07:42 Plt Count 277 K/MM3 (134-434) 09/08/19 07:42 MPV 9.3 fl (7.5-11.1) 09/08/19 07:42 CMP Sodium 138 mmol/L (136-145) 09/08/19 07:42 Potassium 3.7 mmol/L (3.5-5.1) 09/08/19 07:42 Chloride 104 mmol/L (98-107) 09/08/19 07:42 Carbon Dioxide 26 mmol/L (21-32) 09/08/19 07:42 Anion Gap 8 MMOL/L (8-16) 09/08/19 07:42 BUN 6.3 mg/dL (7-18) L 09/08/19 07:42 Creatinine 0.8 mg/dL (0.55-1.3) 09/08/19 07:42 Calcium 9.3 mg/dL (8.5-10.1) 09/08/19 07:42 Total Bilirubin 2.5 mg/dL (0.2-1) H 09/08/19 07:42 AST 251 U/L (15-37) H 09/08/19 07:42 ALT 500 U/L (13-61) H 09/08/19 07:42 Alkaline Phosphatase 180 U/L (45-117) H 09/08/19 07:42 Total Protein 7.3 g/dl (6.4-8.2) 09/08/19 07:42 Albumin 3.5 g/dl (3.4-5.0) 09/08/19 07:42 MRCP: Pending Problem List - Problems (1) Pyelonephritis Assessment/Plan: Patient is improving with ceftriaxone, urine culture is negative, will continue total 5 days of antibiotic Code(s): N12 - TUBULO-INTERSTITIAL NEPHRITIS, NOT SPCF ACUTE OR CHRONIC (2) Transaminitis Assessment/Plan: Today likely source total bilirubin 2.5, SGOT 251 SGPT 508 , alkaline phosphate 180, evaluated by GI recommended MRCP will follow GI recommendation after MRCP. Code(s): R74.0 - NONSPEC ELEV OF LEVELS OF TRANSAMNS & LACTIC ACID DEHYDRGNSE
--- NOTE | 2019-09-08 15:27 | PN.GI ---
GI Progress Note Subjective: No acute events No abdominal pain MRI not read as of yet Bilirubin improved, transaminases elevated No abdominal pain Spoke to Dr Prescott at the [facility]: Fermin had labs drawn 06/27: ASTL 213 ALT: 406 ALP: 146 TB: 0.5. This was attributed to tylenol use. Repeat labs 07/08/19: AST: 23 ALT: 50 ALP: 89 TB: 0.5 Abdominal US was normal, hepatitis A/B serologies were negative - Objective Vital Signs: Vital Signs Temperature 97.8 F 09/08/19 14:51 Pulse Rate 78 09/08/19 14:51 Respiratory Rate 14 09/08/19 14:51 Blood Pressure 100/62 09/08/19 14:51 O2 Sat by Pulse Oximetry (%) 98 09/08/19 09:00 Constitutional: Calm Eyes: No: Sclera Icterus Cardiovascular: Yes: Regular Rate and Rhythm Respiratory: Yes: CTA Bilaterally Gastrointestinal Inspection: No: Distention ...Auscultate: Yes: Normoactive Bowel Sounds ...Palpate: Yes: Soft. No: Hepatomegaly, Splenomegaly, Tenderness ...Percussion: No: Tympanitic Edema: No (No LE edema) Labs: CBC, BMP 09/08/19 07:42 09/08/19 07:42 INR, PTT INR 1.03 (0.83-1.09) 09/08/19 07:42 Hepatic Panel Total Bilirubin 2.5 mg/dL (0.2-1) H 09/08/19 07:42 Direct Bilirubin 3.5 mg/dL (0.0-0.2) H 09/06/19 07:38 AST 251 U/L (15-37) H 09/08/19 07:42 ALT 500 U/L (13-61) H 09/08/19 07:42 Alkaline Phosphatase 180 U/L (45-117) H 09/08/19 07:42 Albumin 3.5 g/dl (3.4-5.0) 09/08/19 07:42 Problem List - Problems (1) Abnormal liver function tests Assessment/Plan: Seem to have had similar pattern in 06/27 that somewhat normalized upon review of labs performed at the [facility] 06/27 Awaiting official read of MRCP Monitor LFTs Avoid hepatotoxic agents. Discontinue Abx if feasible and avoid hepatotoxic agents If continued rise in LFTs, transfer to liver center for liver biopsy and further evaluation Code(s): R94.5 - ABNORMAL RESULTS OF LIVER FUNCTION STUDIES
[2019-09-08 22:07] LABS: HEP B CORE AB, TOT Negative (Negative)
[2019-09-09] MEDS ORDERED: DEXTROSE 5%-WATER - 50 ML IVPB ONE (09:55)
[2019-09-09] MEDS ORDERED: cefTRIAXone SODIUM 1 GM VIAL ONE (09:55)
[2019-09-09] MEDS: ENOXAPARIN NA (PORCINE) 40 MG/0.4 ML DISP.SYRIN SQ SCH (10:09)
[2019-09-09 11:00] LABS: BASO % 0.4 % (0-2.0); EOS % 3.1 % (0-4.5); HEMATOCRIT 36.1 % (32.4-45.2); HEMOGLOBIN 11.9 GM/dL (10.7-15.3); LYMPH % 25.6 % (8-40); MCH 27.7 pg (25.7-33.7); MEAN PLT VOLUME 10.2 fl (7.5-11.1); MONO % 9.8 % (3.8-10.2); NEUT % 61.1 % (42.8-82.8); PLATELET COUNT 298 K/MM3 (134-434); RBC 4.29 M/mm3 (3.60-5.2); RDW 14.5 % (11.6-15.6); WHITE BLOOD COUNT 6.7 K/mm3 (4.0-10.0)
[2019-09-09 11:30] LABS: ALBUMIN 3.4 g/dl (3.4-5.0); BILIRUBIN,TOTAL 1.9 mg/dL (0.2-1); BLOOD UREA NITROGEN 8.9 mg/dL (7-18); CREATININE 0.8 mg/dL (0.55-1.3); POTASSIUM 3.5 mmol/L (3.5-5.1); TOT PROT 7.1 g/dl (6.4-8.2)
--- NOTE | 2019-09-09 12:23 | PN ---
Progress Note (short form) - Note Progress Note: No new complaint of she is comfortable eating well no nausea vomiting no abdominal pain. Vital Signs Period Temp Pulse Resp BP Sys/Terry Pulse Ox Last 24 Hr 97.8 F-98.4 F 65-78 14 99-108/62-82 Head no headache no dizziness Ear nose throat no epistaxis Cardiovascular no chest pain Pulmonary no wheezing no coughing GI no abdominal pain Endocrine no history of diabetes hypothyroidism Neuro no history of stroke Dermatology no history of stroke Locomotor no history of joint pain Rest of review of systems are negative Patient is comfortable HEENT normal Neck supple no JVD Lungs clear no wheezing Abdomen nontender no organomegaly bowel sounds normal Extremities no edema no cyanosis normal pulses Neurologically he is alert awake oriented, nonfocal Skin no rash noted CBC, BMP 09/09/19 09:42 09/09/19 09:42 Laboratory Results - last 24 hr 09/06/19 09/07/19 09/09/19 04:00 08:16 09:42 WBC 6.7 RBC 4.29 Hgb 11.9 Hct 36.1 MCV 84.0 MCH 27.7 MCHC 33.0 RDW 14.5 Plt Count 298 MPV 10.2 Absolute Neuts (auto) 4.1 Neutrophils % 61.1 Lymphocytes % 25.6 Monocytes % 9.8 Eosinophils % 3.1 Basophils % 0.4 Nucleated RBC % 0 Sodium Potassium Chloride Carbon Dioxide Anion Gap BUN Creatinine Est GFR (CKD-EPI)AfAm Est GFR (CKD-EPI)NonAf Random Glucose Calcium Total Bilirubin AST ALT Alkaline Phosphatase Total Protein Albumin JERROD Screen Positive H JERROD Homogeneous Pattern TNP JERROD Nucleolar Pattern TNP JERROD Spindle Jodi Pattern TNP JERROD Midbody Pattern TNP JERROD Centriole Pattern TNP JERROD Nuclear Dot Pattern TNP JERROD PCNA Pattern TNP JERROD Nuclear Membr Pat TNP JERROD Speckled Pattern 1:320 H JERROD Centromere Pattern TNP Smooth Musc &METAL SPRAY OPERATOR Intrp 10 C. trachomatis (DAVID) Negative Hep A IgM Ab Confirm Negative Hepatitis A Ab Total Positive H Hep Bs Antigen Negative Hep Bs Antibody Reactive Hep B Core Total Ab Negative Hep B Core IgM Ab Negative Hepatitis Be Antibody Negative Hepatitis Be Antigen Negative N.gonorrhoeae DNA (DAVID) Negative T. vaginalis (DAVID) Negative 09/09/19 09:42 WBC RBC Hgb Hct MCV MCH MCHC RDW Plt Count MPV Absolute Neuts (auto) Neutrophils % Lymphocytes % Monocytes % Eosinophils % Basophils % Nucleated RBC % Sodium 137 Potassium 3.5 Chloride 104 Carbon Dioxide 26 Anion Gap 7 L BUN 8.9 Creatinine 0.8 Est GFR (CKD-EPI)AfAm 110.70 Est GFR (CKD-EPI)NonAf 95.52 Random Glucose 105 Calcium 9.0 Total Bilirubin 1.9 H AST 294 H ALT 601 H Alkaline Phosphatase 170 H Total Protein 7.1 Albumin 3.4 JERROD Screen JERROD Homogeneous Pattern JERROD Nucleolar Pattern JERROD Spindle Jodi Pattern JERROD Midbody Pattern JERROD Centriole Pattern JERROD Nuclear Dot Pattern JERROD PCNA Pattern JERROD Nuclear Membr Pat JERROD Speckled Pattern JERROD Centromere Pattern Smooth Musc &METAL SPRAY OPERATOR Intrp C. trachomatis (DAVID) Hep A IgM Ab Confirm Hepatitis A Ab Total Hep Bs Antigen Hep Bs Antibody Hep B Core Total Ab Hep B Core IgM Ab Hepatitis Be Antibody Hepatitis Be Antigen N.gonorrhoeae DNA (DAVID) T. vaginalis (DAVID) Problem List - Problems (1) Pyelonephritis Assessment/Plan: She is improving no fever continue IV antibiotic today the fifth day. Code(s): N12 - TUBULO-INTERSTITIAL NEPHRITIS, NOT SPCF ACUTE OR CHRONIC (2) Transaminitis Assessment/Plan: Her liver enzymes are going up bilirubin is coming down down to 1.9 but LFTs are going up discussed with the loom fixer supervisor Dr. Naranjo no he is going to see the patient today. Patient has no symptoms will watch today repeat the LFTs tomorrow. Code(s): R74.0 - NONSPEC ELEV OF LEVELS OF TRANSAMNS & LACTIC ACID DEHYDRGNSE Visit type - Emergency Visit Emergency Visit: Yes ED Registration Date: 09/06/19 Care time: The patient presented to the Emergency Department on the above date and was hospitalized for further evaluation of their emergent condition. - New Patient This patient is new to me today: Yes Date on this admission: 09/09/19 - Critical Care Critical Care patient: No - Discharge Referral Referred to [facility] No
[2019-09-09 14:16] LABS: ALBUMIN 3.6 g/dl (3.4-5.0); BILIRUBIN,TOTAL 1.9 mg/dL (0.2-1); BLOOD UREA NITROGEN 8.9 mg/dL (7-18); CALCIUM 9.5 mg/dL (8.5-10.1); CREATININE 0.8 mg/dL (0.55-1.3); POTASSIUM 3.8 mmol/L (3.5-5.1); TOT PROT 7.4 g/dl (6.4-8.2)
--- NOTE | 2019-09-09 17:11 | PN.GI ---
GI Progress Note Subjective: No acute events States feeling well bilirubin improved, transaminases have risen a bit. Now off ceftriaxone - Objective Vital Signs: Vital Signs Temperature 97 F L 09/09/19 15:22 Pulse Rate 66 09/09/19 15:22 Respiratory Rate 20 09/09/19 15:22 Blood Pressure 104/58 L 09/09/19 15:22 O2 Sat by Pulse Oximetry (%) 98 09/09/19 09:00 Constitutional: Calm Eyes: No: Sclera Icterus Cardiovascular: Yes: Regular Rate and Rhythm Respiratory: Yes: CTA Bilaterally Gastrointestinal Inspection: No: Distention ...Auscultate: Yes: Normoactive Bowel Sounds ...Palpate: Yes: Soft. No: Hepatomegaly, Splenomegaly, Tenderness Edema: No (No LE edema) Neurological: Yes: Alert Labs: CBC, BMP 09/09/19 09:42 09/09/19 12:30 INR, PTT INR 1.03 (0.83-1.09) 09/08/19 07:42 Hepatic Panel Total Bilirubin 1.9 mg/dL (0.2-1) H 09/09/19 12:30 Direct Bilirubin 3.5 mg/dL (0.0-0.2) H 09/06/19 07:38 AST 303 U/L (15-37) H 09/09/19 12:30 ALT 638 U/L (13-61) H 09/09/19 12:30 Alkaline Phosphatase 165 U/L (45-117) H 09/09/19 12:30 Albumin 3.6 g/dl (3.4-5.0) 09/09/19 12:30 Problem List - Problems (1) Abnormal liver function tests Assessment/Plan: Some chronicity to them given outpatient labwork from 06/27. If transaminases continue to rise, will need liver biopsy for further evaluation. Ordered EBV PCR, Monospot. Now off of all medications Continue to monitor LFTs Avoid hepatotoxic agents Consider HIV testing Code(s): R94.5 - ABNORMAL RESULTS OF LIVER FUNCTION STUDIES
[2019-09-10 09:29] LABS: ALBUMIN 3.4 g/dl (3.4-5.0); BILIRUBIN,DIRECT 1.2 mg/dL (0.0-0.2); BILIRUBIN,TOTAL 1.7 mg/dL (0.2-1); TOT PROT 7.4 g/dl (6.4-8.2)
--- NOTE | 2019-09-10 10:04 | PN ---
Progress Note (short form) - Note Progress Note: Continued rise in transamnisases. If persists through tomorrow, recommend transfer to hepatobiliary center ([facility]) where liver biopsy can be performed and expeditiously read to help guide in potential medical management. [place] screen and EBV PCR ordered again for today for the lab to collect Problem List - Problems (1) Abnormal liver function tests Code(s): R94.5 - ABNORMAL RESULTS OF LIVER FUNCTION STUDIES
[2019-09-10] MEDS: ENOXAPARIN NA (PORCINE) 40 MG/0.4 ML DISP.SYRIN SQ SCH (10:23)
--- NOTE | 2019-09-10 11:15 | PN ---
Progress Note (short form) - Note Progress Note: No new complaint of she is comfortable eating well no nausea vomiting no abdominal pain. Head no headache no dizziness Ear nose throat no epistaxis Cardiovascular no chest pain Pulmonary no wheezing no coughing GI no abdominal pain Endocrine no history of diabetes hypothyroidism Neuro no history of stroke Dermatology no history of stroke Locomotor no history of joint pain Rest of review of systems are negative Laboratory Results - last 24 hr 09/09/19 09/09/19 09/10/19 09:42 12:30 08:33 Sodium 137 137 Potassium 3.5 3.8 Chloride 104 104 Carbon Dioxide 26 26 Anion Gap 7 L 7 L BUN 8.9 8.9 Creatinine 0.8 0.8 Est GFR (CKD-EPI)AfAm 110.70 110.70 Est GFR (CKD-EPI)NonAf 95.52 95.52 Random Glucose 105 116 H Calcium 9.0 9.5 Total Bilirubin 1.9 H 1.9 H 1.7 H Direct Bilirubin 1.2 H AST 294 H 303 H 336 H ALT 601 H 638 H 689 H Alkaline Phosphatase 170 H 165 H 165 H Creatine Kinase Total Protein 7.1 7.4 7.4 Albumin 3.4 3.6 3.4 09/10/19 08:33 Sodium Potassium Chloride Carbon Dioxide Anion Gap BUN Creatinine Est GFR (CKD-EPI)AfAm Est GFR (CKD-EPI)NonAf Random Glucose Calcium Total Bilirubin Direct Bilirubin AST ALT Alkaline Phosphatase Creatine Kinase 53 Total Protein Albumin Patient is comfortable HEENT normal Neck supple no JVD Lungs clear no wheezing Abdomen nontender no organomegaly bowel sounds normal Extremities no edema no cyanosis normal pulses Neurologically he is alert awake oriented, nonfocal Skin no rash noted Assessment and plan acute UTI is resolved she is off the antibiotics. Hepatitis and transaminases. Patient is still having a rise of liver enzymes even though bilirubin is coming down to 1.7. Discussed with the gourmet coffee attendant at this time will repeat labs tomorrow if she continues to have a elevation in the transaminases she needs to be transferred to tertiary care for further biopsy and work-up. Also order is hepatitis viral load panel. Problem List - Problems (1) Pyelonephritis Code(s): N12 - TUBULO-INTERSTITIAL NEPHRITIS, NOT SPCF ACUTE OR CHRONIC (2) Transaminitis Code(s): R74.0 - NONSPEC ELEV OF LEVELS OF TRANSAMNS & LACTIC ACID DEHYDRGNSE Visit type - Emergency Visit Emergency Visit: Yes ED Registration Date: 09/06/19 Care time: The patient presented to the Emergency Department on the above date and was hospitalized for further evaluation of their emergent condition. - New Patient This patient is new to me today: No - Critical Care Critical Care patient: No - Discharge Referral Referred to [facility] No
[2019-09-11] MEDS: ENOXAPARIN NA (PORCINE) 40 MG/0.4 ML DISP.SYRIN SQ SCH (10:38)
[2019-09-11] MEDS ORDERED: TETRAHYDROZOLINE HCL EYE DROPS OU PRN (11:51)
--- NOTE | 2019-09-11 12:30 | PN ---
Progress Note (short form) - Note Progress Note: GI f/u No new events Patient asymptomatic Vital Signs Temp 98.1 F 09/11/19 09:00 Pulse 64 09/11/19 09:00 Resp 17 09/11/19 09:00 BP 98/60 09/11/19 09:00 Pulse Ox 98 09/11/19 09:00 CBC, BMP 09/09/19 09:42 09/09/19 12:30 Hepatic Panel Total Bilirubin 1.7 mg/dL (0.2-1) H 09/10/19 08:33 Direct Bilirubin 1.2 mg/dL (0.0-0.2) H 09/10/19 08:33 AST 336 U/L (15-37) H 09/10/19 08:33 ALT 689 U/L (13-61) H 09/10/19 08:33 Alkaline Phosphatase 165 U/L (45-117) H 09/10/19 08:33 Albumin 3.4 g/dl (3.4-5.0) 09/10/19 08:33 INR 1.3 two days ago Imp: Unclear etiology of abnormal LFTs - DILI vs AIH vs other. Will transfer to [facility] for liver bx and further management - discussed with pt Await further serological w/u Daily LFTs AND INR
[2019-09-11 13:57] LABS: ALBUMIN 3.8 g/dl (3.4-5.0); BILIRUBIN,TOTAL 1.4 mg/dL (0.2-1); BLOOD UREA NITROGEN 9.2 mg/dL (7-18); CALCIUM 9.5 mg/dL (8.5-10.1); CREATININE 0.7 mg/dL (0.55-1.3); POTASSIUM 4.1 mmol/L (3.5-5.1)
[2019-09-11 14:53] VITALS: BP 102/64; PULSE 78; TEMP 97.8
--- NOTE | 2019-09-11 15:59 | DS ---
Physical Exam: SUBJECTIVE: no events overnight. Offers no complaints. OBJECTIVE: Vital Signs Period Temp Pulse Resp BP Sys/Terry Pulse Ox Last 24 Hr 97.5 F-98.1 F 64-78 17-20 98-102/55-64 98 PHYSICAL EXAM GENERAL: a/o x 3, in NAD HEAD: Normal with no signs of trauma. EYES: PERRL, conjunctiva clear. No ptosis. ENT: moist mucous membranes. NECK: supple. LUNGS: Breath sounds equal, clear to auscultation bilaterally HEART: RRR, no MGR ABDOMEN: Soft, nontender, nondistended, normoactive bowel sounds. EXTREMITIES: 2+ pulses, warm, well-perfused, no edema. LABS Laboratory Results - last 24 hr 09/11/19 12:24 Sodium 137 Potassium 4.1 Chloride 104 Carbon Dioxide 25 Anion Gap 7 L BUN 9.2 Creatinine 0.7 Est GFR (CKD-EPI)AfAm 130.10 Est GFR (CKD-EPI)NonAf 112.25 Random Glucose 106 Calcium 9.5 Total Bilirubin 1.4 H AST 432 H ALT 855 H Alkaline Phosphatase 175 H Total Protein 8.0 Albumin 3.8 HOSPITAL COURSE: Date of Admission:09/06/19 #Acute Pyelonephritis -resolved -Complete IV abx: Ceftriaxone #Elevated LFTs -unclear etiology DILI (elevated lfts at [facility] prior to this admission) vs AIH vs other. -Patient is still having a rise of liver enzymes even though bilirubin is coming down. now 1.4 -U/S unremarkable -GI reccs noted -[facility] and further management . patient in agreement #FEN - Regular diet #DVT - Lovenox 40mg SQ Date of Discharge: 09/11/19 Minutes to complete discharge: 35 Discharge Summary Problems reviewed: Yes Reason For Visit: PYELONEPHRITIS Current Active Problems Abnormal liver function tests (Acute) Pyelonephritis (Acute) Transaminitis (Acute) UTI (urinary tract infection) (Acute) Condition: Stable - Instructions Referrals: ON STAFF,NOT [Non Staff, Medical] - 09/11/19 11:00 am (Dr. Person) Disposition: TRANSFER ACUTE CARE/OTHER HOSP This patient is new to me today: Yes Date on this admission: 09/11/19 Emergency Visit: Yes ED Registration Date: 09/06/19 Care time: The patient presented to the Emergency Department on the above date and was hospitalized for further evaluation of their emergent condition. Critical Care patient: No - Discharge Referral Referred to [facility] No ATTENDING PHYSICIAN STATEMENT I saw and evaluated the patient. I reviewed the resident's note and discussed the case with the resident. I agree with the resident's findings and plan as documented. SUBJECTIVE: OBJECTIVE: ASSESSMENT AND PLAN:
== END 2019-09-11 17:41 | disposition short-term general hospital (02) ==
LOC: JERFT 21:41 → JERBED 09-06 01:11 → J6S 09-06 04:35
PROVIDERS: ADMIT Internal Medicine
DX: K71.9 Toxic liver disease, unspecified (principal); N39.0 Urinary tract infection, site not specified; R74.0 Nonspecific elevation of levels of transaminase and lactic acid dehydrogenase [LDH]; R94.5 Abnormal results of liver function studies; T36.8X5A Adverse effect of other systemic antibiotics, initial encounter
CPT/HCPCS: 36415; 74181-TC; 76700-TC; 80053; 80061; 80076; 80307; 81003; 82550; 82977; 83516; 83690; 83721; 84478; 84703; 85025; 85610; 86038; 86308; 86480; 86593; 86704; 86706; 86707; 86708; 86709; 87086; 87340; 87491; 87522; 87591; 87661; 87799; 87902; 93005; 93010; 99284-25; J0131; J7030

== ENCOUNTER 2024-10-09 07:45 | Inpatient (IN) | payer OTHER ==
[2024-10-09] MEDS ORDERED: ELECTROLYTE-148 SOLN 1,000 ML IV SCH (08:30)
[2024-10-09 08:45] VITALS: BMI 32.9
[2024-10-09] MEDS: ELECTROLYTE-148 SOLN 500 ML IV ONE (09:00)
[2024-10-09 09:02] LABS: HEMATOCRIT 35.2 % (32.4-45.2); HEMOGLOBIN 11.5 GM/dL (10.7-15.3); MCH 28.3 pg (25.7-33.7); MCHC 32.7 g/dl (32.0-36.0); MEAN CELL VOLUME 86.7 fl (80-96); MEAN PLT VOLUME 10.2 fl (7.5-11.1); PLATELET COUNT 204 10^3/uL (134-434); RBC 4.05 M/mm3 (3.60-5.2); WHITE BLOOD COUNT 11.4 K/mm3 (4.0-10.0)
[2024-10-09 09:04] LABS: INR 0.99 (0.83-1.09); PROTHROMBIN TIME (PATIENT) 10.8 SEC (9.7-13.0)
[2024-10-09 09:10] LABS: BLOOD UREA NITROGEN 6.5 mg/dL (7-18)
[2024-10-09 09:13] LABS: CREATININE 0.5 mg/dL (0.55-1.3)
[2024-10-09 10:16] LABS: BASO % 0.2 % (0-2.0); EOS % 1.1 % (0-4.5); LYMPH % 17.9 % (8-40); MONO % 7.7 % (3.8-10.2); NEUT % 73.1 % (42.8-82.8)
[2024-10-09] MEDS: CITRIC ACID/SODIUM CITRATE 30 ML UNIT-DOSE CUP PO ONE (10:30)
[2024-10-09] MEDS ORDERED: LIGASURE IMPACT TP ONE (11:20)
[2024-10-09] MEDS ORDERED: morphine SULFATE/PF 1 MG/2 ML (2cc Syringe - QUVA) ONE (11:20)
[2024-10-09] MEDS ORDERED: FENTANYL CITRATE/PF 50 MCG/ML VIAL ONE (11:20)
[2024-10-09] MEDS ORDERED: ONDANSETRON 4 MG/2 ML VIAL ONE (12:36)
[2024-10-09] MEDS ORDERED: KETOROLAC TROMETHAMINE 30 MG/1 ML VIAL ONE (12:36)
[2024-10-09] MEDS ORDERED: ceFAZolin SODIUM 1 GM VIAL ONE (12:36)
[2024-10-09] MEDS ORDERED: oxyCODONE HCL 5 MG TABLET PO PRN (12:45)
[2024-10-09] MEDS ORDERED: OXYTOCIN 20 UNITS in 0.9% NS 20 UNIT/1,000 ML INFUS.BAG IV SCH (12:45)
[2024-10-09] MEDS ORDERED: LACTATED RINGERS SOLUTION 1,000 ML/1,000 ML INFUS.BAG IV SCH (12:45)
[2024-10-09] MEDS ORDERED: ONDANSETRON 4 MG/2 ML VIAL IVPB PRN (12:45)
[2024-10-09] MEDS ORDERED: ACETAMINOPHEN 1000 MG/100 ML BAG IVPB PRN ×2 (12:45→13:27)
[2024-10-09] MEDS ORDERED: IBUPROFEN 600 MG TABLET (FP) PO PRN (12:45)
[2024-10-09 12:54] LABS: CORD BASE EXCESS -9.8 mmol/L (0-2); CORD HCO3 19.3 mmHg (20-29); CORD PCO2 54.6 mmHg (30-78); CORD pH 7.166 (7.14-7.44)
[2024-10-09 13:04] LABS: CORD BASE EXCESS -12.1 mmol/L (0-2); CORD HCO3 18.6 mmHg (20-29); CORD PCO2 63.9 mmHg (30-78); CORD pH 7.083 (7.14-7.44)
[2024-10-09] MEDS ORDERED: OXYTOCIN 20 UNITS in 0.9% NS 20 UNIT/1,000 ML INFUS.BAG IV ONE (13:13)
[2024-10-09] MEDS ORDERED: ACETAMINOPHEN INJECTION 100 ML ONE (13:13)
[2024-10-09] MEDS: ACETAMINOPHEN 1000 MG/100 ML BAG IVPB ONE (13:20)
[2024-10-09] MEDS ORDERED: ACETAMINOPHEN 325 MG TABLET (FP) PO PRN (13:23)
[2024-10-09] MEDS ORDERED: METHYLERGONOVINE MALEATE 0.2 MG/1 ML AMP IM PRN (13:23)
[2024-10-09] MEDS: OXYTOCIN 20 UNITS in 0.9% NS 20 UNIT/1,000 ML INFUS.BAG IV SCH (14:00)
[2024-10-09] MEDS: morphine SULFATE/PF 1 MG/2 ML (2cc Syringe - QUVA) IT ONE (15:27)
[2024-10-09] MEDS: FERROUS SO4 325 MG TABLET (FP) PO SCH (21:24)
[2024-10-09] MEDS: SENNOSIDES/DOCUSATE COMBO (SENNA PLUS) TABLET (UD) PO SCH (21:24)
[2024-10-10] MEDS ORDERED: oxyCODONE HCL 5 MG TABLET PO PRN ×2 (01:24)
[2024-10-10] MEDS: IBUPROFEN (CALDOLOR) 800 MG/200 ML PREMIX BAGS IVPB PRN (02:16)
[2024-10-10 07:36] LABS: BASO % 0.3 % (0-2.0); EOS % 0.9 % (0-4.5); HEMATOCRIT 33.6 % (32.4-45.2); HEMOGLOBIN 10.9 GM/dL (10.7-15.3); LYMPH % 12.8 % (8-40); MCH 28.2 pg (25.7-33.7); MCHC 32.4 g/dl (32.0-36.0); MEAN CELL VOLUME 87.2 fl (80-96); MEAN PLT VOLUME 10.5 fl (7.5-11.1); MONO % 6.4 % (3.8-10.2); NEUT % 79.6 % (42.8-82.8); PLATELET COUNT 191 10^3/uL (134-434); RBC 3.85 M/mm3 (3.60-5.2); RDW 14.7 % (11.6-15.6); WHITE BLOOD COUNT 13.2 K/mm3 (4.0-10.0)
[2024-10-10] MEDS: PRENATAL VITAMINS W/ FOLIC ACID TABLET (FP) PO SCH (08:59)
[2024-10-10] MEDS: IBUPROFEN 600 MG TABLET (FP) PO PRN (09:08)
[2024-10-10] MEDS: SIMETHICONE 80 MG TAB.CHEW (FP) PO PRN (09:09)
[2024-10-10] MEDS ORDERED: BISACODYL 10 MG SUPP.RECT RC PRN (13:24)
[2024-10-10 15:06] VITALS: RESP 18
[2024-10-10] MEDS: ACETAMINOPHEN 325 MG TABLET (FP) PO PRN (20:39)
[2024-10-10] MEDS: BISACODYL 10 MG SUPP.RECT RC PRN (20:51)
[2024-10-11] MEDS: SIMETHICONE 80 MG TAB.CHEW (FP) PO PRN (09:47)
[2024-10-12 06:21] LABS: BASO % 0.3 % (0-2.0); EOS % 2.4 % (0-4.5); HEMATOCRIT 27.7 % (32.4-45.2); HEMOGLOBIN 9.1 GM/dL (10.7-15.3); LYMPH % 21.5 % (8-40); MCH 28.2 pg (25.7-33.7); MCHC 32.8 g/dl (32.0-36.0); MEAN PLT VOLUME 9.9 fl (7.5-11.1); MONO % 8.3 % (3.8-10.2); NEUT % 67.5 % (42.8-82.8); PLATELET COUNT 188 10^3/uL (134-434); RBC 3.22 M/mm3 (3.60-5.2); WHITE BLOOD COUNT 9.1 K/mm3 (4.0-10.0)
[2024-10-12 07:52] VITALS: BP 112/74; PULSE 90; TEMP 98.5
== END 2024-10-12 11:35 | disposition home or self-care (01) | DRG 540 ==
LOC: JLDR 07:45 → J3W 15:10
PROVIDERS: ADMIT Obstetrics & Gynecology Obstetrics; ATTEND Obstetrics & Gynecology Obstetrics
PROC: 10D00Z1 Extraction of Products of Conception, Low, Open Approach (ICD-10-PCS; principal; 2024-10-09)
PROC: 0UB70ZZ Excision of Bilateral Fallopian Tubes, Open Approach (ICD-10-PCS; 2024-10-09)
DX: O34.211 Maternal care for low transverse scar from previous cesarean delivery (principal); N85.8 Other specified noninflammatory disorders of uterus; Z3A.39 39 weeks gestation of pregnancy; Z30.2 Encounter for sterilization; N83.8 Other noninflammatory disorders of ovary, fallopian tube and broad ligament; Z37.0 Single live birth
CPT/HCPCS: 36415; 36600; 59409; 80048; 82803; 85025; 85610; 85730; 86780; 86850; 86900; 86901; 88304-TC; 88305-TC; 88307-TC; 94010; J0131